=== PATIENT | male | born 1940 | race Caucasian/White ===

== ENCOUNTER 2017-01-16 21:30 | Inpatient (IN) | payer OTHER, MEDICARE ==
[~2017-01-16] VITALS: Ht 167.6 cm; Wt 66.5 kg
[2017-01-16] MEDS ORDERED: OMEP20TA93 PO (21:46)
[2017-01-16] MEDS ORDERED: GABA100C4 PO (21:46)
[2017-01-16] MEDS ORDERED: ENAL20TA PO (21:46)
[2017-01-16] MEDS ORDERED: ALPR.25 PO (21:46)
[2017-01-16 21:52] VITALS: BP 183/91; PULSE 65; RESP 18; TEMP 97.9; O2SAT 96
--- NOTE | 2017-01-16 21:52 | PD ---
HPI Chief Complaint: Dizziness Time Seen by Provider: 21:50 Travel History International Travel<30 days: No Contact w/Intl Traveler<30days: No Traveled to known affect area: No History of Present Illness HPI The patient is 76 years old and arrives by EMS. He has been falling at home about 3 times over the last 3 days or so. He has been following the occipital scalp area. No loss of consciousness. The patient denies chest pain shortness of breath nausea and vomiting. He does describe dizziness to EMS who provides some of the history. No fever. No history of coronary artery disease diabetes or hyperlipidemia. Patient has a history of anxiety and takes Xanax. PFSH Social History Tobacco Use: No Allergies-Medications (Allergen,Severity, Reaction): Coded Allergies: No Known Allergies (Unverified , 01/16/17) Reported Meds & Prescriptions Reported Meds & Active Scripts Active Reported Enalapril (Enalapril Maleate) 20 Mg Tab 20 Mg PO DAILY Xanax (Alprazolam) 0.25 Mg Tab 0.25 Mg PO Q8H PRN Omeprazole 20 Mg Tab 20 Mg PO DAILY Gabapentin 100 Mg Cap 100 Mg PO BID Review of Systems Except as stated in HPI: all other systems reviewed are Neg General / Constitutional: No: Fever Cardiovascular: Positive: Chest Pain or Discomfort Respiratory: Positive: Cough Physical Exam Narrative GENERAL: 76 yo M, AOx3, speaks full sentences SKIN: Focused skin assessment warm/dry. HEAD: Atraumatic. Normocephalic. No significant head trauma. EYES: Pupils equal and round. No scleral icterus. No injection or drainage. ENT: No nasal bleeding or discharge. Mucous membranes pink and moist. NECK: Trachea midline. No JVD. CARDIOVASCULAR: Regular rate and rhythm. No murmur appreciated. RESPIRATORY: No accessory muscle use. Clear to auscultation. Breath sounds equal bilaterally. GASTROINTESTINAL: Abdomen soft, non-tender, nondistended. Hepatic and splenic margins not palpable. MUSCULOSKELETAL: No obvious deformities. No clubbing. No cyanosis. No edema. Pelvis stable. No TTP about greater trochanter. Hips flexion normal. NEUROLOGICAL: Awake and alert. No obvious cranial nerve deficits. Motor grossly within normal limits. Normal speech. PSYCHIATRIC: Appropriate mood and affect; insight and judgment normal. Data Data Last Documented VS Vital Signs Date Time Temp Pulse Resp B/P (MAP) Pulse Ox O2 Delivery O2 Flow Rate FiO2 01/16/17 22:03 96 Room Air 01/16/17 21:52 97.9 65 18 VS reviewed Last [address] 01/16/17 2150 Signed Impressions: Service Date/Time: Monday, January 16, 2017 22:15 - CONCLUSION: Age-appropriate atrophy. No acute findings. Jose Maria Colunga MD Pelvis X-Ray 01/16/17 0000 Signed Impressions: Service Date/Time: Tuesday, January 17, 2017 10:08 - CONCLUSION: No fracture seen. Jose Maria Colunga MD Vital Signs Date Time Temp Pulse Resp B/P (MAP) Pulse Ox O2 Delivery O2 Flow Rate FiO2 01/16/17 22:03 96 Room Air 01/16/17 21:52 97.9 65 18 183/91 (121) 96 Room Air Orders Orders Basic Metabolic Panel (Bmp) (01/16/17 21:50) Complete Blood Count With Diff (01/16/17 21:50) Magnesium (Mg) (01/16/17 21:50) Ct Brain W/O Iv Contrast(Rout) (01/16/17 21:50) Ecg Monitoring (01/16/17 21:50) Iv Access Insert/Monitor (01/16/17 21:50) Oximetry (01/16/17 21:50) Sodium Chloride 0.9% Flush (Ns Flush) (01/16/17 22:00) Pelvis, Ap Only (Routine) (01/16/17 ) Drug Screen, Random Urine (01/16/17 22:26) Urinalysis - C+S If Indicated (01/16/17 22:26) Hepatic Functional Panel (01/16/17 21:45) Troponin I (01/16/17 21:45) Electrocardiogram (01/16/17 ) Chest, Single Ap (01/16/17 ) Admit Order (Ed Use Only) (01/16/17 ) Help Desk Agent / Telemetry MARNIE.Q8H (01/16/17 22:57) Vital Signs (Adult) Q4H (01/16/17 22:57) Diet Npo (01/17/17 Breakfast) Activity Bed Rest (01/16/17 22:57) Notify Dr: Other (01/16/17 22:57) Coag Profile (01/16/17 23:01) Labs Laboratory Tests Test 01/16/17 21:45 01/16/17 22:32 White Blood Count 7.9 TH/MM3 Red Blood Count 4.48 MIL/MM3 Hemoglobin 12.6 GM/DL Hematocrit 38.2 % Mean Corpuscular Volume 85.3 FL Mean Corpuscular Hemoglobin 28.2 PG Mean Corpuscular Hemoglobin Concent 33.0 % Red Cell Distribution Width 13.6 % Platelet Count 235 TH/MM3 Mean Platelet Volume 8.1 FL Neutrophils (%) (Auto) 70.8 % Lymphocytes (%) (Auto) 18.8 % Monocytes (%) (Auto) 8.6 % Eosinophils (%) (Auto) 1.1 % Basophils (%) (Auto) 0.7 % Neutrophils # (Auto) 5.5 TH/MM3 Lymphocytes # (Auto) 1.5 TH/MM3 Monocytes # (Auto) 0.7 TH/MM3 Eosinophils # (Auto) 0.1 TH/MM3 Basophils # (Auto) 0.1 TH/MM3 CBC Comment DIFF FINAL Differential Comment Blood Urea Nitrogen 12 MG/DL Creatinine 0.93 MG/DL Random Glucose 79 MG/DL Total Protein 7.2 GM/DL Albumin 3.1 GM/DL Calcium Level 8.6 MG/DL Magnesium Level 2.0 MG/DL Alkaline Phosphatase 80 U/L Aspartate Amino Transf (AST/SGOT) 36 U/L Alanine Aminotransferase (ALT/SGPT) 24 U/L Total Bilirubin 0.4 MG/DL Direct Bilirubin 0.1 MG/DL Sodium Level 139 MEQ/L Potassium Level 3.5 MEQ/L Chloride Level 105 MEQ/L Carbon Dioxide Level 26.5 MEQ/L Anion Gap 8 MEQ/L Estimat Glomerular Filtration Rate 79 ML/MIN Indirect Bilirubin 0.3 MG/DL Troponin I 1.35 NG/ML Urine Color YELLOW Urine Turbidity CLEAR Urine pH 6.5 Urine Specific [place] 1.017 Urine Protein TRACE mg/dL Urine Glucose (UA) NEG mg/dL Urine Ketones NEG mg/dL Urine Occult Blood NEG Urine Nitrite NEG Urine Bilirubin NEG Urine Leukocyte Esterase NEG Urine RBC 0-3 /hpf Urine WBC 0-2 /hpf Urine Squamous Epithelial Cells 0-5 /hpf Urine Bacteria NONE /hpf Microscopic Urinalysis Comment CULT NOT INDICATED Urine Barbiturates Screen NEG Urine Amphetamines Screen NEG Urine Benzodiazepines Screen POS Urine Cannabinoids Screen NEG MDM Medical Decision Making Medical Screen Exam Complete: Yes Emergency Medical Condition: Yes Medical Record Reviewed: Yes Differential Diagnosis Intracranial hemorrhage, metabolic disarray, NSTEMI, pelvic injury Narrative Course CBC & BMP Diagram 01/16/17 21:45 Total Protein 7.2, Albumin 3.1 L, Calcium Level 8.6, Magnesium Level 2.0, Alkaline Phosphatase 80, Aspartate Amino Transf (AST/SGOT) 36, Alanine Aminotransferase (ALT/SGPT) 24, Total Bilirubin 0.4, Direct Bilirubin 0.1 Tn 1.35 Tox screen + for benzos Last Impressions Head CT 01/16/17 2150 Signed Impressions: Service Date/Time: Monday, January 16, 2017 22:15 - CONCLUSION: Age-appropriate atrophy. No acute findings. Jose Maria Colunga MD Pelvis X-Ray 01/16/17 0000 Signed Impressions: Service Date/Time: Tuesday, January 17, 2017 10:08 - CONCLUSION: No fracture seen. Jose Maria Colunga MD Pt has NSTEMI EKG: Sinus rate 63 TWI inferior II, III and aVF no ST elevations d/w Dr Duncan pt will go to [facility], heparin started Heparin started d/w Dr Johnson for [facility] Critical Care Narrative Aggregate critical care time was 40 minutes. Time to perform other separately billable procedures was not included in the critical care time. My time did not include minutes spent treating any other patients simultaneously or on activities that did not directly contribute to the patient's treatment. The services I provided to this patient were to treat and/or prevent clinically significant deterioration that could result in: Cardiopulmonary arrest I provided critical care services requiring my management, as noted below: Chart data review, documentation time, medication orders and management, vital sign assessments/reviewing monitor data, ordering and reviewing lab tests, ordering and interpreting/reviewing x-rays and diagnostic studies, care of the patient and discussion of the patient with the admitting physicians. Diagnosis Primary Impression: NSTEMI (non-ST elevated myocardial infarction) Additional Impression: Falls Qualified Codes: W19.XXXA - Unspecified fall, initial encounter Admitting Information Admitting Physician Requests: Admit Guicho Batista MD Jan 16, 2017 21:52
[2017-01-16] MEDS ORDERED: SODIUM CHLORIDE 0.9% FLUSH 10 ML FLUSH IVF PRN (22:00)
[2017-01-16 22:03] VITALS: O2SAT 96
[2017-01-16 22:07] LABS: AUTOMATED NEUTROPHIL # 5.5 TH/MM3 (1.8-7.7); BASOPHIL # 0.1 TH/MM3 (0-0.2); BASOPHIL % 0.7 % (0.0-2.0); EOSINOPHIL # 0.1 TH/MM3 (0-0.4); EOSINOPHIL % 1.1 % (0.0-4.0); HEMATOCRIT 38.2 % (39.0-51.0); HEMO FLAGS DIFF FINAL; LYMPH % 18.8 % (9.0-44.0); LYMPHOCYTE # 1.5 TH/MM3 (1.0-4.8); MEAN CELL VOLUME 85.3 FL (80.0-100.0); MEAN CORPUSCULAR HEMOGLOBIN 28.2 PG (27.0-34.0); MONO % 8.6 % (0.0-8.0); NEUT % 70.8 % (16.0-70.0); PLATELET COUNT 235 TH/MM3 (150-450); RED BLOOD COUNT 4.48 MIL/MM3 (4.50-5.90); RED CELL DISTRIBUTION WIDTH 13.6 % (11.6-17.2); WHITE BLOOD COUNT 7.9 TH/MM3 (4.0-11.0)
[2017-01-16 22:13] LABS: POTASSIUM 3.5 MEQ/L (3.5-5.1)
[2017-01-16 22:17] LABS: BICARBONATE 26.5 MEQ/L (21.0-32.0)
--- NOTE | 2017-01-16 22:36 | RADRPT ---
EXAM DATE/TIME: 01/16/2017 22:15 CORRECTION Corrected on: January 21, 2017; fixed date and time [facility] COMPARISON: No previous studies available for comparison. INDICATIONS : Left hip pain post fall. MEDICAL HISTORY : None. SURGICAL HISTORY : None. ENCOUNTER: Initial ACUITY: 1 day PAIN SCORE: 4/10 LOCATION: Bilateral pelvis FINDINGS: A single frontal view of the pelvis demonstrates no evidence of fracture. The bony pelvic ring is in tact. Bony mineralization is normal. The soft tissues are intact. Vascular calcification in the pe lvis and proximal thighs. CONCLUSION: No fracture seen. Jose Maria Colunga MD on January 16, 2017 at 22:34 Board Certified Radiologist. Board Certified Radiologist. This report was verified electronically.
[2017-01-16 22:39] LABS: BLOOD, URINE NEG (NEG); GLUCOSE,URINE NEG (NEG); KETONE, URINE NEG (NEG); NITRITE,URINE NEG (NEG); PH, URINE 6.5 (5.0-8.5)
[2017-01-16 22:40] LABS: URINE COLOR YELLOW (YELLW/STRAW)
[2017-01-16 22:42] LABS: INDIRECT BILIRUBIN 0.3 MG/DL (0.0-0.8); TOTAL BILIRUBIN ADULT 0.4 MG/DL (0.2-1.0)
[2017-01-16 22:42] LABS: COMMENT (UR) CULT NOT INDICATED; CULTURE IF INDICATED CULT NOT INDICATED; RBC, URINE 0-3 /hpf (0-3); SQUAMOUS EPITHELIAL CELL URINE 0-5 /hpf (0-5); WBC, URINE 0-2 /hpf (0-5)
--- NOTE | 2017-01-16 22:42 | RADRPT ---
EXAM DATE/TIME: 01/16/2017 22:15 [facility] COMPARISON: No previous studies available for comparison. INDICATIONS : Frequent falls. Dizziness. Weakness RADIATION DOSE: 60.38 CTDIvol (mGy) MEDICAL HISTORY : Hypertension. SURGICAL HISTORY : None. ENCOUNTER: Initial ACUITY: 1 day PAIN SCALE: 0/10 LOCATION: cranial TECHNIQUE: Multiple contiguous axial images were obtained of the head. Using automated exposure control and adj ustment of the mA and/or kV according to patient size, radiation dose was kept as low as reasonably a chievable to obtain optimal diagnostic quality images. DICOM format image data is available electro nically for review and comparison. FINDINGS: CEREBRUM: The ventricles are normal for age. No evidence of midline shift, mass lesion, hemorrhage or acute in farction. No extra-axial fluid collections are seen. POSTERIOR FOSSA: The cerebellum and brainstem are intact. The 4th ventricle is midline. The cerebellopontine angle i s unremarkable. EXTRACRANIAL: The visualized portion of the orbits is intact. SKULL: The calvaria is intact. No evidence of skull fracture. CONCLUSION: Age-appropriate atrophy. No acute findings. Jose Maria Colunga MD on January 16, 2017 at 22:40 Board Certified Radiologist. This report was verified electronically.
[2017-01-16 23:08] VITALS: BP 154/84; PULSE 65; RESP 16; O2SAT 97
[2017-01-16] MEDS: SODIUM CHLOR 0.9% 1000 ML INJ 1,000 ML IV SCH (23:09)
[2017-01-16] MEDS ORDERED: SENNOSIDES 8.6 MG TAB PO PRN (23:15)
[2017-01-16] MEDS ORDERED: LACTULOSE SYRUP 20 GM/30 ML CUP PO PRN (23:15)
[2017-01-16] MEDS ORDERED: HEPARIN-D5W 25,000 U/250 ML 250 ML IV PRN (23:15)
[2017-01-16] MEDS ORDERED: BISACODYL 10 MG SUPP RECTAL PRN (23:15)
[2017-01-16] MEDS ORDERED: MORPHINE SULFATE 4 MG/ML INJ IV PUSH PRN (23:15)
[2017-01-16] MEDS ORDERED: ACETAMINOPHEN/HYDROcodone 325 MG/5 MG TAB PO PRN (23:15)
[2017-01-16] MEDS ORDERED: MAGNESIUM HYDROXIDE SUSP 30 ML CUP PO PRN (23:15)
[2017-01-16] MEDS ORDERED: SODIUM CHLORIDE 0.9% FLUSH 10 ML FLUSH IV FLUSH PRN (23:15)
[2017-01-16] MEDS ORDERED: ACETAMINOPHEN 325 MG TAB PO PRN (23:15)
[2017-01-16 23:25] LABS: APTT (PATIENT) 28.9 SEC (24.3-30.1); PROTHROMBIN TIME - PATIENT 10.9 SEC (9.8-11.6)
--- NOTE | 2017-01-16 23:26 | RADRPT ---
EXAM DATE/TIME: 01/16/2017 22:15 CORRECTION Corrected on: January 22, 2017; fix date and time [facility] COMPARISON: No previous studies available for comparison. INDICATIONS : Chest pain. MEDICAL HISTORY : Hypertension. SURGICAL HISTORY : None. ENCOUNTER: Initial ACUITY: 1 day PAIN SCORE: 3/10 LOCATION: Bilateral chest FINDINGS: A single view of the chest demonstrates the lungs to be symmetrically aerated without evidence of mas s, infiltrate or effusion. The cardiomediastinal contours are unremarkable. Osseous structures are intact. There are multiple overlying electrocardiogram leads. Surgical clips are present in the right upper quadrant characteristic of care cholecystectomy. CONCLUSION: No acute disease. Jesús Davies MD on January 16, 2017 at 23:24 Board Certified Radiologist. Board Certified Radiologist. This report was verified electronically.
[2017-01-16 23:40] VITALS: O2SAT 100
[2017-01-16 23:59] LABS: CKMB 4.7 NG/ML (0.5-3.6)
[2017-01-17] VITALS (25 sets, daily range): BP systolic 151–183; BP diastolic 84–117; PULSE 60–85; RESP 16–20; TEMP 97.5–98.4; O2SAT 95–100
[2017-01-17] MEDS: HEPARIN-D5W 25,000 U/250 ML 250 ML IV PRN (01:02)
[2017-01-17] MEDS ORDERED: hydrALAZINE HCL 20 MG/ML VIAL IV PUSH ONE (03:00)
--- NOTE | 2017-01-17 03:16 | HHI.HP ---
HPI Service [facility] Hospitalists Primary Care Physician No Primary Care Physician Admission Diagnosis Tn 1.5; Falls; AMS Diagnoses: (1) NSTEMI (non-ST elevated myocardial infarction) Diagnosis: Principal (2) Falls Chief Complaint: Falling Travel History International Travel<30 Days: No Contact w/Intl Traveler <30 Da: No Traveled to Known Affected Are: No History of Present Illness Mr. Dash is 76 yo, with history of anxiety, GERD, tremors, hypertension, and diabetes. Pt stated having difficulty walking for "over the past two weeks." He stated he has been "staggering" and "I can't walk a straight line." He noted over the past three days having fallen 4 times with at least one head strike. None of these falls resulted in loss of consciousness, blurred vision, or headache. He did report a fall that was a left sided head strike did result in him developing "some nausea." He stated he became concerned about his falling and called 911 and was taken to [facility] [place]. Testing indicated the presence of elevated troponin and he was subsequently transferred to [facility] early on the morning of 01/17/17 for further evaluation and management. Mr. Dash denied chest pain, shortness of breath, nausea, vomiting, sweating , or other discomfort. Per RN, she stated pt's niece had reported pt was "not himself". Pt noted he has been taking Ativan and RN stated it had recently "been stopped." His tox screen was positive for benzodiazepines. Review of Systems Constitutional: DENIES: Diaphoretic episodes, Fatigue Endocrine: DENIES: Polydipsia, Polyphagia Eyes: DENIES: Blurred vision, Vision loss, Double Vision Ears, nose, mouth, throat: COMPLAINS OF: Hearing loss (has bilateral hearing aids.), DENIES: Tinnitus, Throat pain, Toothache Respiratory: DENIES: Apneas, Wheezing, Hemoptysis, Shortness of breath Cardiovascular: DENIES: Chest pain, Palpitations, Syncope, Lower Extremity Edema Gastrointestinal: COMPLAINS OF: Nausea (When he struck his head "a few days ago."), DENIES: Abdominal pain, Black stools, Bloody stools, Constipation, Diarrhea, Vomiting Genitourinary: DENIES: Urgency, Hematuria Musculoskeletal: DENIES: Muscle aches, Back pain Integumentary: DENIES: Abnormal pigmentation, Rash Hematologic/lymphatic: DENIES: Bruising Neurologic: COMPLAINS OF: Abnormal gait, Tremor (Reported to be of 10-15 year duration. Worsens when he "goes to do something." Noted he has difficulty writing. 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 He said he was not bothered/concerned about this as "it's like I go to the grocery and forget some things." Pt said he can experience difficulty "recalling what happened last week." Past Family Social History Past Medical History Anxiety Tremor Hypertension GERD Diabetes-pt stated he takes 12 unites of Novolog in the morning, 10 units at lunch and 20 units of Levemir at night. Past Surgical History Cholecystectomy Appendectomy Reported Medications Reported Meds & Active Scripts Active Reported Enalapril (Enalapril Maleate) 20 Mg Tab 20 Mg PO DAILY Xanax (Alprazolam) 0.25 Mg Tab 0.25 Mg PO Q8H PRN Omeprazole 20 Mg Tab 20 Mg PO DAILY Gabapentin 100 Mg Cap 100 Mg PO BID Allergies: Coded Allergies: No Known Allergies (Unverified , 01/16/17) Active Ordered Medications Current Medications Medications (Trade) Dose Ordered Sig/[place] Route Start Time Stop Time Status Last Admin (NS Flush) 2 ml UNSCH PRN IVF 01/16/17 22:00 Sodium Chloride 1,000 ml @ 100 mls/hr Q10H IV 01/16/17 23:09 01/16/17 23:09 (NS Flush) 2 ml UNSCH PRN IV FLUSH 01/16/17 23:15 (NS Flush) 2 ml BID IV FLUSH 01/17/17 09:00 (Zofran Inj) 4 mg Q6H PRN IVP 01/16/17 23:15 (Tylenol) 650 mg Q6H PRN PO 01/16/17 23:15 ([place] 5-325 Mg) 1 tab Q4H PRN PO 01/16/17 23:15 (Morphine Inj) 1 mg Q3H PRN IV PUSH 01/16/17 23:15 (Haylie-Colace) 1 tab BID PO 01/17/17 09:00 (Milk Of Magnesia Liq) 30 ml Q12H PRN PO 01/16/17 23:15 (Dulcolax Supp) 10 mg DAILY PRN RECTAL 01/16/17 23:15 (Lactulose Liq) 30 ml DAILY PRN PO 01/16/17 23:15 (Ecotrin Ec) 81 mg DAILY PO 01/17/17 09:00 (Pravachol) 40 mg DAILY PO 01/17/17 09:00 (Lopressor) 25 mg Q12HR PO 01/17/17 09:00 Heparin Sodium/ Dextrose 250 ml @ 8 mls/hr TITRATE PRN IV 01/16/17 23:45 01/17/17 01:02 Family History Mother-diabetes (type II) Father-Diabetes, smoker, heart disease, from an [place] Brother-reported to have "the same walking problems I have. He can't walk a straight line either." Social History Pt denied lifelong tobacco use history. Alcohol use was denied. Illicit/recreational drug use was denied. Pt worked in [employer] much of his life. Life long bachelor. Reported having a brother, nephew and niece "near by" and a sister who lives in [place]. Pt stated he had learning "problems" and it was hard form her to "read, and do math." He stated he completed the 6th grade. Physical Exam Vital Signs Vital Signs Date Time Temp Pulse Resp B/P (MAP) Pulse Ox O2 Delivery O2 Flow Rate FiO2 01/17/17 02:00 97.5 70 16 173/88 (116) 100 01/17/17 01:14 63 18 161/90 (113) 100 Nasal Cannula 01/16/17 23:40 100 Nasal Cannula 2.00 01/16/17 23:08 65 16 154/84 (107) 97 Room Air 01/16/17 22:03 96 Room Air 01/16/17 21:52 97.9 65 18 183/91 (121) 96 Room Air Physical Exam GENERAL: This is a well-nourished, well-developed patient, in no apparent distress. SKIN: No rashes, ecchymoses or lesions. Cool and dry. HEAD: Atraumatic. Normocephalic. EYES: Pupils equal round and reactive. Extraocular motions intact. No scleral icterus. No injection or drainage. ENT: Nose without bleeding or purulent . Airway patent. Bilateral hearing aids present. NECK: Trachea midline. No lymphadenopathy. Supple and nontender. CARDIOVASCULAR: Regular rate and rhythm without murmurs, gallops, or rubs. RESPIRATORY: Clear to auscultation. Breath sounds equal bilaterally. No wheezes , rales, or rhonchi. GASTROINTESTINAL: Abdomen soft, non-tender, nondistended. No hepato- splenomegaly or guarding. MUSCULOSKELETAL: Extremities without clubbing, cyanosis, or edema. NEUROLOGICAL: Awake and alert. Cranial nerves II through XII intact. Motor and sensory grossly within normal limits. Five out of 5 muscle strength in all muscle groups. Speech was clear and fluent. Pt stated he was unaware of cardiac issues and stated he was being hospitalized for his falling. Laboratory Laboratory Tests Test 01/16/17 21:45 01/16/17 22:32 White Blood Count 7.9 Red Blood Count 4.48 Hemoglobin 12.6 Hematocrit 38.2 Mean Corpuscular Volume 85.3 Mean Corpuscular Hemoglobin 28.2 Mean Corpuscular Hemoglobin Concent 33.0 Red Cell Distribution Width 13.6 Platelet Count 235 Mean Platelet Volume 8.1 Neutrophils (%) (Auto) 70.8 Lymphocytes (%) (Auto) 18.8 Monocytes (%) (Auto) 8.6 Eosinophils (%) (Auto) 1.1 Basophils (%) (Auto) 0.7 Neutrophils # (Auto) 5.5 Lymphocytes # (Auto) 1.5 Monocytes # (Auto) 0.7 Eosinophils # (Auto) 0.1 Basophils # (Auto) 0.1 CBC Comment DIFF FINAL Differential Comment Prothrombin Time 10.9 Prothromb Time International Ratio 1.0 Activated Partial Thromboplast Time 28.9 Blood Urea Nitrogen 12 Creatinine 0.93 Random Glucose 79 Total Protein 7.2 Albumin 3.1 Calcium Level 8.6 Magnesium Level 2.0 Alkaline Phosphatase 80 Aspartate Amino Transf (AST/SGOT) 36 Alanine Aminotransferase (ALT/SGPT) 24 Total Bilirubin 0.4 Direct Bilirubin 0.1 Sodium Level 139 Potassium Level 3.5 Chloride Level 105 Carbon Dioxide Level 26.5 Anion Gap 8 Estimat Glomerular Filtration Rate 79 Indirect Bilirubin 0.3 Total Creatine Kinase 530 Creatine Kinase MB 4.7 Creatine Kinase MB % 0.9 Troponin I 1.35 Urine Color YELLOW Urine Turbidity CLEAR Urine pH 6.5 Urine Specific [place] 1.017 Urine Protein TRACE Urine Glucose (UA) NEG Urine Ketones NEG Urine Occult Blood NEG Urine Nitrite NEG Urine Bilirubin NEG Urine Leukocyte Esterase NEG Urine RBC 0-3 Urine WBC 0-2 Urine Squamous Epithelial Cells 0-5 Urine Bacteria NONE Microscopic Urinalysis Comment CULT NOT INDICATED Urine Opiates Screen NEG Urine Barbiturates Screen NEG Urine Amphetamines Screen NEG Urine Benzodiazepines Screen POS Urine Cocaine Screen NEG Urine Cannabinoids Screen NEG Result Diagram: 01/16/17214401/16/172144 Imaging Last Impressions Head CT 01/16/172149 Signed Impressions: Service Date/Time: Monday, January 16, 2017 22:15 - CONCLUSION: Age-appropriate atrophy. No acute findings. Jose Maria Colunga MD Pelvis X-Ray 01/16/17 0000 Signed Impressions: Service Date/Time: Tuesday, January 17, 2017 10:08 - CONCLUSION: No fracture seen. Jose Maria Colunga MD Chest X-Ray 01/16/17 0000 Signed Impressions: Service Date/Time: Tuesday, January 17, 2017 11:15 - CONCLUSION: No acute disease. Jesús Davies MD [place] VTE Risk Assessment Caprini VTE Risk Assessment: Mod/High Risk (score >= 2) Caprini Risk Assessment Model Point Value = 1 Point Value = 2 Point Value = 3 Point Value = 5 Age 41-60 Minor surgery BMI > 25 kg/m2 Swollen legs Varicose veins or History of unexplained or recurrent spontaneous Oral contraceptives or hormone replacement Sepsis (< 1 month) Serious lung disease, including pneumonia (< 1 month) Abnormal pulmonary function Acute myocardial infarction Congestive heart failure (< 1 month) History of inflammatory bowel disease Medical patient at bed rest Age 61-74 Arthroscopic surgery Major open surgery (> 45 min) Laparoscopic surgery (> 45 min) Malignancy Confined to bed (> 72 hours) Immobilizing plaster cast Central venous access Age >= 75 History of VTE Family history of VTE Factor V Leiden Prothrombin [id number] Lupus anticoagulant Anticardiolipin antibodies Elevated serum homocysteine Heparin-induced thrombocytopenia Other congenital or acquired thrombophilia Stroke (< 1 month) Elective arthroplasty Hip, pelvis, or leg fracture Acute spinal cord injury (< 1 month) Prophylaxis Regimen Total Risk Factor Score Risk Level Prophylaxis Regimen 0-1 Low Early ambulation 2 Moderate Order ONE of the following: *Sequential Compression Device (SCD) *Heparin 5000 units SQ BID 3-4 Higher Order ONE of the following medications: *Heparin 5000 units SQ TID *Enoxaparin/Lovenox 40 mg SQ daily (WT < 150 kg, CrCl > 30 mL/min) *Enoxaparin/Lovenox 30 mg SQ daily (WT < 150 kg, CrCl > 10-29 mL/min) *Enoxaparin/Lovenox 30 mg SQ BID (WT < 150 kg, CrCl > 30 mL/min) AND/OR *Sequential Compression Device (SCD) 5 or more Highest Order ONE of the following medications: *Heparin 5000 units SQ TID (Preferred with Epidurals) *Enoxaparin/Lovenox 40 mg SQ daily (WT < 150 kg, CrCl > 30 mL/min) *Enoxaparin/Lovenox 30 mg SQ daily (WT < 150 kg, CrCl > 10-29 mL/min) *Enoxaparin/Lovenox 30 mg SQ BID (WT < 150 kg, CrCl > 30 mL/min) AND *Sequential Compression Device (SCD) Assessment and Plan Assessment and Plan Mr. Dash is 76 yo, with history of anxiety, GERD, tremors, hypertension, and diabetes. Pt stated having difficulty walking for "over the past two weeks." He stated he has been "staggering" and "I can't walk a straight line." He noted over the past three days having fallen 4 times with at least one head strike. None of these falls resulted in loss of consciousness, blurred vision, or headache. He did report a fall that was a left sided head strike did result in him developing "some nausea." He stated he became concerned about his falling and called 911 and was taken to [facility]. Testing indicated the presence of elevated troponin and he was subsequently transferred to [facility] early on the morning of 01/17/17 for further evaluation and management. NSTEMI Hypertension -Admit to cardiac unit. -Cardiology consulted, input appreciated. -Heparin drip initiated. -Serial Troponin ordered -Continue home regimen of metoprolol 25 mg po q 12 hrs -Elevations to be treated PRN Falls Tremors -Pt with [id number] history of staggering and falls, consult neurology -Consult PT to evaluate and treat. Diabetes -Finger sticks q ac and hs -Ha1c to be ordered -Low dose Novolog sliding scale insulin Random blood sugar noted to be 79 while in [place] ED. Anxiety -Anxiolytic held at this time. DVT prophylaxis -Heparin Code Status Full code Discussed Condition With Pt, RN, and Dr. Johnson Physician Certification 2 Midnight Certification Type: Admission for Inpatient Services Order for Inpatient Services The services are ordered in accordance with Medicare regulations or non- Medicare payer requirements, as applicable. In the case of services not specified as inpatient-only, they are appropriately provided as inpatient services in accordance with the 2-midnight benchmark. Estimated LOS (days): 2 Two days is the estimated time the patient will need to remain in the hospital, assuming treatment plan goals are met and no additional complications. Post-Hospital Plan: Not yet determined Problem Qualifiers (1) Falls: Qualified Codes: W19.XXXA - Unspecified fall, initial encounter Ben Arguello Jr. Jan 17, 2017 03:16
[2017-01-17] MEDS ORDERED: GLUCAGON 1 MG/ML VIAL OTHER PRN (03:45)
[2017-01-17] MEDS ORDERED: DEXTROSE 50% IN WATER 50 ML VIAL(D50) IV PUSH PRN (03:45)
[2017-01-17 05:41] LABS: APTT (PATIENT) 36.7 SEC (24.3-30.1)
[2017-01-17 06:29] LABS: CKMB 4.2 NG/ML (0.5-3.6)
[2017-01-17 07:45] LABS: APTT (PATIENT) 45.1 SEC (24.3-30.1)
[2017-01-17] MEDS: INSULIN ASPART SUPPLEMENTAL SCALE SQ SCH ×4 (08:00→21:00)
[2017-01-17] MEDS: METOPROLOL TARTRATE 25 MG TAB PO SCH ×2 (08:01→20:39)
[2017-01-17] MEDS: DOCUSATE SODIUM 50 MG/SENNA 8.6 MG TAB PO SCH ×2 (08:01→20:39)
[2017-01-17] MEDS: SODIUM CHLORIDE 0.9% FLUSH 10 ML FLUSH IV FLUSH SCH ×2 (08:01→20:38)
[2017-01-17] MEDS: ASPIRIN EC 81 MG TABEC PO SCH (08:01)
[2017-01-17] MEDS: PRAVASTATIN SOD 40 MG TAB PO SCH (08:01)
[2017-01-17] MEDS ORDERED: PNEUMOCOCCAL POLYVALENT INJ 25 MCG/0.5 ML SYR IM ONE (09:00)
[2017-01-17] MEDS: SODIUM CHLOR 0.9% 1000 ML INJ 1,000 ML IV SCH ×2 (09:09→19:09)
[2017-01-17 10:48] LABS: ALT (GPT) 23 U/L (12-78); ANION GAP 8 MEQ/L (5-15); AST (GOT) 33 U/L (15-37); BICARBONATE 25.6 MEQ/L (21.0-32.0); BLOOD UREA NITROGEN 11 MG/DL (7-18); CHLORIDE 104 MEQ/L (98-107); GLOMERULAR FILTRATION RATE 85 ML/MIN (>89); POTASSIUM 3.7 MEQ/L (3.5-5.1); SODIUM (NA) 138 MEQ/L (136-145)
[2017-01-17 10:52] LABS: ALKALINE PHOSPHATASE 90 U/L (45-117); CREATINE KINASE 416 U/L (39-308); TOTAL BILIRUBIN ADULT 0.5 MG/DL (0.2-1.0)
[2017-01-17 10:57] LABS: AUTOMATED NEUTROPHIL # 5.8 TH/MM3 (1.8-7.7); BASOPHIL % 0.1 % (0.0-2.0); EOSINOPHIL % 0.4 % (0.0-4.0); HEMATOCRIT 40.9 % (39.0-51.0); HEMO FLAGS DIFF FINAL; LYMPH % 14.1 % (9.0-44.0); MEAN CELL VOLUME 86.2 FL (80.0-100.0); MEAN CORPUSCULAR HEMOGLOBIN 28.7 PG (27.0-34.0); MEAN CORPUSCULAR HGB CONC 33.3 % (32.0-36.0); MONO % 6.5 % (0.0-8.0); NEUT % 78.9 % (16.0-70.0); PLATELET COUNT 231 TH/MM3 (150-450); RED BLOOD COUNT 4.74 MIL/MM3 (4.50-5.90); RED CELL DISTRIBUTION WIDTH 14.2 % (11.6-17.2); WHITE BLOOD COUNT 7.4 TH/MM3 (4.0-11.0)
[2017-01-17 11:10] LABS: CKMB 4.1 NG/ML (0.5-3.6)
[2017-01-17 12:12] LABS: HEMOGLOBIN A1a 1.1 %; HEMOGLOBIN A1b 1.9 %; HEMOGLOBIN Ao 81.5 %; HEMOGLOBIN LA1C 2.7 %; HEMOGLOBIN P3 4.4 %
[2017-01-17 12:40] LABS: APTT (PATIENT) 43.1 SEC (24.3-30.1)
--- NOTE | 2017-01-17 13:53 | MB ---
cc: BASSAM RIGGS M.D. DATE OF CONSULTATION: 01/17/2017. REASON FOR CONSULTATION: Ataxia and tremor. HISTORY OF PRESENT ILLNESS: Mr. Dash is a 76-year-old male who states that for about a year now he has had trouble with walking difficulty where he tends to waver going from side to side while walking. He has had frequent falls because of this. He has to use a walker. He has had a tremor as well in both upper extremities for about five years gradually progressive. PAST MEDICAL HISTORY: 1. History of anxiety. 2. Tremor. 3. Hypertension. 4. Gastroesophageal reflux disease (GERD). 5. Diabetes. 6. Cholecystectomy. 7. Appendectomy. MEDICINES AT HOME: 1. Enalapril. 2. Xanax. 3. Omeprazole. 4. Gabapentin. ALLERGIES: NONE KNOWN. NEUROLOGICAL EXAMINATION: VITAL SIGNS: Blood pressure is 161/91 sitting. Pulse is 61. Respiratory rate is 18. Temperature 98.2 degrees. HIGHER CORTICAL FUNCTIONS: He is alert and oriented x3. His speech is somewhat hypophonic but fluent. CRANIAL NERVES: Cranial nerves are intact. MOTOR: On motor exam, he has 5/5 strength of all groups in both upper and lower extremities. He is mildly bradykinetic. He has tremors in both hands, which are mainly sustention tremors. On cerebellar testing, he does have dysmetria in both upper extremities. His gait is very wide-based and ataxic. IMAGING STUDIES: CT scan of the brain shows atrophy. No acute change. No sign of hydrocephalus. Ventricular size is within normal limits. LABS: The white count is 7400, hematocrit 40.9%, hemoglobin 13.6, platelet count 231,000. PT 10.9. INR 1. APTT 28.9. Sodium is 139, potassium 3.5, chloride 105, carbon dioxide 26.5, BUN is 12, creatinine is 0.93, GFR is 79. AST is 36, ALT 24. IMPRESSION: Ataxia. He has mainly cerebellar findings on his examination. This may be a multiple system atrophy such as olivopontocerebellar atrophy. Parkinson's is a possibility but somewhat less likely. His gait is more cerebellar. RECOMMENDATIONS: 1. I would like to get an MRI of the brain to rule out cerebellar atrophy. 2. Also check a vitamin B12 level. MD LORRI Garcia/TISHA /12:01 PM /1:44 PM
--- NOTE | 2017-01-17 14:44 | EKG ---
Date Performed: 01/16/2017 Time Performed: 22:56:48 PTAGE: 76 years EKG: Sinus rhythm POSSIBLE LEFT ATRIAL ENLARGEMENT BORDERLINE LEFT AXIS DEVIATION POSSIBLE LEFT VENTRICULAR HYPERTROPH Y NONSPECIFIC ST & T-WAVE ABNORMALITY ABNORMAL ECG NO PREVIOUS TRACING DOCTOR: Derrick Batista Interpretating Date/Time 01/17/2017 14:42:49
[2017-01-17] MEDS ORDERED: GADODIAMIDE PF 287 MG/ML 20 ML VIAL (for RAD MRI) IVCONTRAST ONE (14:55)
--- NOTE | 2017-01-17 15:11 | MB ---
cc: DERRICK GARCES DO DATE OF CONSULTATION: 01/17/2017 REASON FOR CONSULTATION: NSTEMI. HISTORY OF PRESENT ILLNESS Tanner Dash is a pleasant 76-year-old male who presented to [facility] on January 16, 2017 due to dizziness, staggering and having trouble walking straight. He states that over the past few weeks he has had trouble being able to walk straight as well as having to stagger. He was noted to fall a few times over the past four days with at least one strike to his head. None of the falls resulted in loss of consciousness, blurred vision or headache. Because of the difficulty with walking and falls, he called 9-1-1 and was taken to the [facility]. Because of the elevated troponin, he was transferred to [facility]. On seeing him, he is currently hemodynamically stable without chest pain, shortness of breath, nausea or vomiting. PAST MEDICAL HISTORY: 1. Anxiety. 2. Baseline trauma. 3. Hypertension. 4. Gastroesophageal reflux disease (GERD). 5. Diabetes mellitus. PAST SURGICAL HISTORY: 1. Cholecystectomy. 2. Appendectomy. ALLERGIES: NO KNOWN DRUG ALLERGIES. MEDICATIONS: 1. Enalapril 20 milligrams daily. 2. Given 1000 milligrams twice a day. 3. Xanax 0.25 milligrams every 8 hours as needed for anxiety. 4. Omeprazole 20 milligrams daily. FAMILY HISTORY: Denies premature coronary artery disease or sudden cardiac within the family. SOCIAL HISTORY: The patient denies tobacco or alcohol abuse. He does have a few family nearby including a brother, a nephew and a niece. REVIEW OF SYSTEMS Fourteen systems were reviewed including osteopathic with pertinent positives and negatives as above; otherwise negative. PHYSICAL EXAMINATION: VITAL SIGNS: Temperature 98.2, heart rate 64, blood pressure 161/91, respirations 18, pulse ox 98% on 2 liters. GENERAL: In general the patient appears well and in no acute distress, alert awake and oriented x3. HEAD, EYES, EARS, NOSE, THROAT: Extraocular muscles intact. Mucous membranes moist. NECK: Supple. No JVD at 45 degrees. No carotid bruits heard bilaterally. Carotid upstroke is brisk in nature. HEART: Regular rate and rhythm. Positive first and second heart sounds with no noted murmurs, gallops or rubs. LUNGS: Clear to auscultation bilaterally. No wheezes, rales or rhonchi. ABDOMEN: The abdomen is soft, nontender and nondistended. No organomegaly noted. EXTREMITIES: Baseline tremor in the upper extremities. No cyanosis, clubbing or edema is noted in the distal lower extremities. NEUROLOGIC: Cranial nerves II through XII are grossly intact. Baseline tremor noted, otherwise, no focal deficits. SKIN: Warm, dry and intact. LABORATORY WORK: Hemoglobin 13.6, hematocrit 40.9, platelets 231,000. Potassium 3.7, BUN 11, creatinine 0.87. Troponin 1.32. EKGS: Electrocardiogram (January 16, 2017 at 2256): Sinus rhythm, possible left atrial enlargement, possible LVH with nonspecific S-T-T wave changes. IMPRESSION: 1. NSTEMI. 2. Multiple falls recently. 3. Longstanding dizziness. 4. Hypertension. 5. Baseline tremor. 6. Diabetes mellitus. 7. Anxiety. RECOMMENDATIONS: 1. Mr. Dash presented to [facility] with the complaint of falls. He was found to have an elevated troponin, and I am unsure at this time whether this is type 1 or type 2 in nature. 2. He has been started on a heparin drip and unless stopped by neurology, would continue this. 3. I spoke to him about consideration of medical management versus ischemic evaluation and he states that he is willing to undergo a cardiac catheterization. The risks, benefits, and alternatives were explained to him and he consented as such. 4. He states that his dizziness has bothered him for around five years, even though he has had a little more difficulty with walking recently. We will plan on having neurology see him for further workup for this. 5. Will check a 2-D echocardiogram to look at his overall left ventricular function, cardiac structure and possible valvulopathies. 6. Further recommendations will be made based on the hospital course. Thank you for allowing me to see Tanner Dash. If there are any questions, please do not hesitate to call. Derrick Garces DO VGP/TISHA /12:50 PM /2:57 PM
--- NOTE | 2017-01-17 15:17 | RADRPT ---
EXAM DATE/TIME: 01/17/2017 14:42 [place] COMPARISON: No previous studies available for comparison. INDICATIONS : Ataxia. Frequent falling. CONTRAST: 14 cc Omniscan (gadodiamide) IV MEDICAL HISTORY : Pancreatitis. Hypertension. Diabetes mellitus type 2. SURGICAL HISTORY : Cholecystectomy. Appendectomy. Pancreas. ENCOUNTER: Initial ACUITY: 2 day PAIN SCORE: 0/10 LOCATION: cranial TECHNIQUE: Multiplanar, multisequence MRI of the brain was performed both prior to and following the administrat ion of paramagnetic contrast. FINDINGS: CEREBRUM: The ventricles are normal for age. No evidence of midline shift, mass lesion, hemorrhage or acute in farction. No extraaxial fluid collections are seen. The pituitary gland and suprasellar cistern are normal in configuration. WHITE MATTER: No significant signal abnormalities are seen in the white matter. POSTERIOR FOSSA: The cerebellum and brainstem are intact. The 4th ventricle is midline. The cerebellopontine angle is unremarkable. The cerebellar tonsils are normal in position. DIFFUSION IMAGING: No focal areas of restricted diffusion are seen. No evidence of acute infarction. EXTRACRANIAL: The visualized portions of the orbits and paranasal sinuses are unremarkable. POST-CONTRAST: No abnormal areas of parenchymal or dural enhancement. No evidence of blood-brain barrier breakdown. CONCLUSION: Age-appropriate atrophy. Otherwise negative MRI brain with and without contrast. Jose Maria Colunga MD on January 17, 2017 at 15:13 Board Certified Radiologist. This report was verified electronically.
[2017-01-17] MEDS: ONDANSETRON HCL 4 MG/2 ML VIAL IVP PRN (20:29)
[2017-01-18] VITALS (30 sets, daily range): BP systolic 129–189; BP diastolic 54–91; PULSE 50–78; RESP 16–20; TEMP 97.3–98.4; O2SAT 94–100
[2017-01-18 04:44] LABS: APTT (PATIENT) 53.3 SEC (24.3-30.1)
[2017-01-18] MEDS: SODIUM CHLOR 0.9% 1000 ML INJ 1,000 ML IV SCH ×2 (05:09→15:48)
[2017-01-18 05:18] LABS: CKMB 3.3 NG/ML (0.5-3.6)
[2017-01-18] MEDS: HEPARIN-D5W 25,000 U/250 ML 250 ML IV PRN (06:19)
[2017-01-18] MEDS: ONDANSETRON HCL 4 MG/2 ML VIAL IVP PRN ×2 (06:53→13:54)
[2017-01-18] MEDS: INSULIN ASPART SUPPLEMENTAL SCALE SQ SCH ×4 (08:00→21:00)
[2017-01-18] MEDS: SODIUM CHLORIDE 0.9% FLUSH 10 ML FLUSH IV FLUSH SCH ×2 (08:49→21:39)
[2017-01-18] MEDS: METOPROLOL TARTRATE 25 MG TAB PO SCH ×2 (08:50→21:38)
[2017-01-18] MEDS: ASPIRIN EC 81 MG TABEC PO SCH (08:50)
[2017-01-18] MEDS: PRAVASTATIN SOD 40 MG TAB PO SCH (08:50)
[2017-01-18] MEDS: DOCUSATE SODIUM 50 MG/SENNA 8.6 MG TAB PO SCH ×2 (08:50→21:38)
--- NOTE | 2017-01-18 10:36 | HHI.PR ---
Subjective Remarks Nursing reports that the patient had multiple episodes of vomiting last night. Unsure if these were tied to meals in particular. Nursing denies any hematemesis. Patient says he now feels much better this morning with just a little bit of nausea. Denies any chest pain or abdominal pain. He is able to tell me that he is at [place] and he was admitted because he kept falling a lot. Objective Vital Signs Date Time Temp Pulse Resp B/P (MAP) Pulse Ox O2 Delivery O2 Flow Rate FiO2 01/18/17 10:23 72 01/18/17 09:28 169/84 (112) 01/18/17 09:00 58 01/18/17 08:48 170/91 (117) 01/18/17 08:00 54 01/18/17 07:54 97.3 57 18 189/88 (121) 99 01/18/17 07:35 57 01/18/17 06:00 78 01/18/17 05:00 62 01/18/17 04:00 50 01/18/17 04:00 97.4 58 16 150/83 (105) 100 01/18/17 03:00 62 01/18/17 02:00 68 01/18/17 01:40 154/54 (87) 01/18/17 01:00 64 01/18/17 00:00 58 01/18/17 00:00 155/84 (107) 01/17/17 23:00 63 01/17/17 23:00 97.5 63 177/92 (120) 100 01/17/17 22:00 164/92 (116) 01/17/17 22:00 60 01/17/17 21:00 70 01/17/17 20:00 97.5 61 20 183/117 (139) 95 01/17/17 20:00 70 01/17/17 19:00 70 01/17/17 18:01 65 01/17/17 17:00 62 01/17/17 16:01 98.4 67 18 152/85 (107) 96 01/17/17 16:01 64 01/17/17 15:00 67 01/17/17 14:00 70 01/17/17 13:00 68 01/17/17 12:01 85 01/17/17 11:15 98.2 64 18 161/91 (114) 98 01/17/17 11:01 61 I/O 01/17/17 01/17/17 01/17/17 01/18/17 01/18/17 01/18/17 07:00 15:00 23:00 07:00 15:00 23:00 Intake Total 702 ml 240 ml Output Total 200 ml 550 ml 400 ml Balance -200 ml 152 ml -160 ml Intake Oral 702 ml 240 ml Output Urine Total 200 ml 550 ml 400 ml # Voids 4 2 # Bowel Movements 0 1 Result Diagram: 01/17/17 1008 01/17/17 1008 Objective Remarks Sitting in chair, watching TV, no acute distress Heart sounds are regular rate rhythm, no murmurs Lungs are clear bilaterally, unlabored breathing Alert and oriented 3, pleasant mood and affect A/P Assessment and Plan Mr. Dash is 76 yo, with history of anxiety, GERD, tremors, hypertension, and diabetes. Admitted for NSTEMI and hx of falling. NSTEMI - stable Hypertension -Cardiology following, plans for catheterization in a.m. -Continue home lopressor, and restarting home enalapril -aspirin, switching pravastatin to lipitor 40, ordering echo Falls PT recommending walker w/ home PT - fall precautions, neurology - Occupational therapy and speech therapy have also been consulted given that there is a family concern the patient may not be able to adequately take care of himself Diabetes -Finger sticks q ac and hs -Hb1c 7.5%, given pt's age and comorbdities, fast and prepandial sugar goals can be between 140 and 170, no need for further otherwise aggressive sugar control -Low dose Novolog sliding scale insulin Random blood sugar noted to be 79 while in [place] ED. Anxiety -will resume home xanax to minimize w/d DVT prophylaxis heparin Tahir Cunningham MD Jan 18, 2017 10:36
[2017-01-18] MEDS: ENALAPRIL MALEATE 10 MG TAB PO SCH (11:18)
[2017-01-18] MEDS: PANTOPRAZOLE SOD 20 MG DELAYED RELEASE TAB PO SCH (11:18)
[2017-01-18 12:23] LABS: CKMB 3.8 NG/ML (0.5-3.6)
--- NOTE | 2017-01-18 12:56 | PD.CARD.PN ---
Subjective Subjective Remarks No events overnight No chest pain, no SOB Objective Medications Current Medications Medications (Trade) Dose Ordered Sig/[place] Route Start Time Stop Time Status Last Admin Sodium Chloride 1,000 ml @ 100 mls/hr Q10H IV 01/16/17 23:09 01/16/17 23:09 (NS Flush) 2 ml UNSCH PRN IV FLUSH 01/16/17 23:15 (NS Flush) 2 ml BID IV FLUSH 01/17/17 09:00 01/18/17 08:49 (Zofran Inj) 4 mg Q6H PRN IVP 01/16/17 23:15 01/18/17 06:53 (Tylenol) 650 mg Q6H PRN PO 01/16/17 23:15 01/18/17 01:57 (Lindsay 5-325 Mg) 1 tab Q4H PRN PO 01/16/17 23:15 (Morphine Inj) 1 mg Q3H PRN IV PUSH 01/16/17 23:15 (Haylie-Colace) 1 tab BID PO 01/17/17 09:00 01/18/17 08:50 (Milk Of Magnesia Liq) 30 ml Q12H PRN PO 01/16/17 23:15 (Dulcolax Supp) 10 mg DAILY PRN RECTAL 01/16/17 23:15 (Lactulose Liq) 30 ml DAILY PRN PO 01/16/17 23:15 (Ecotrin Ec) 81 mg DAILY PO 01/17/17 09:00 01/18/17 08:50 (Pravachol) 40 mg DAILY PO 01/17/17 09:00 01/18/17 08:50 (Lopressor) 25 mg Q12HR PO 01/17/17 09:00 01/18/17 08:50 Heparin Sodium/ Dextrose 250 ml @ 8 mls/hr TITRATE PRN IV 01/16/17 23:45 01/18/17 06:19 (D50w (Vial) Inj) 50 ml UNSCH PRN IV PUSH 01/17/17 03:45 (Glucagon Inj) 1 mg UNSCH PRN OTHER 01/17/17 03:45 (NovoLOG SUPPLEMENTAL SCALE) 1 ACHS SLIDING SCALE SQ 01/17/17 08:00 01/18/17 12:32 (Vasotec) 20 mg DAILY PO 01/18/17 10:45 01/18/17 11:18 (Protonix) 20 mg DAILY PO 01/18/17 11:00 01/18/17 11:18 Vital Signs / I&O Vital Signs Date Time Temp Pulse Resp B/P (MAP) Pulse Ox O2 Delivery O2 Flow Rate FiO2 01/18/17 12:25 66 01/18/17 11:12 97.3 63 18 147/79 (101) 98 01/18/17 11:00 59 01/18/17 10:23 72 01/18/17 09:28 169/84 (112) 01/18/17 09:00 58 01/18/17 08:48 170/91 (117) 01/18/17 08:00 54 01/18/17 07:54 97.3 57 18 189/88 (121) 99 01/18/17 07:35 57 01/18/17 06:00 78 01/18/17 05:00 62 01/18/17 04:00 50 01/18/17 04:00 97.4 58 16 150/83 (105) 100 01/18/17 03:00 62 01/18/17 02:00 68 01/18/17 01:40 154/54 (87) 01/18/17 01:00 64 01/18/17 00:00 58 01/18/17 00:00 155/84 (107) 01/17/17 23:00 63 01/17/17 23:00 97.5 63 177/92 (120) 100 01/17/17 22:00 164/92 (116) 01/17/17 22:00 60 01/17/17 21:00 70 01/17/17 20:00 97.5 61 20 183/117 (139) 95 01/17/17 20:00 70 01/17/17 19:00 70 01/17/17 18:01 65 01/17/17 17:00 62 01/17/17 16:01 98.4 67 18 152/85 (107) 96 01/17/17 16:01 64 01/17/17 15:00 67 01/17/17 14:00 70 01/17/17 13:00 68 I/O 01/17/17 01/17/17 01/17/17 01/18/17 01/18/17 01/18/17 07:00 15:00 23:00 07:00 15:00 23:00 Intake Total 702 ml 240 ml Output Total 200 ml 550 ml 400 ml Balance -200 ml 152 ml -160 ml Intake Oral 702 ml 240 ml Output Urine Total 200 ml 550 ml 400 ml # Voids 4 2 # Bowel Movements 0 1 Physical Exam GENERAL: NAD, alert and awake SKIN: Warm and dry. HEAD: Atraumatic. Normocephalic. EYES: Pupils equal and round. No scleral icterus. No injection or drainage. ENT: No nasal bleeding or discharge. Mucous membranes pink and moist. NECK: Trachea midline. No JVD. CARDIOVASCULAR: Regular rate and rhythm. RESPIRATORY: No accessory muscle use. Clear to auscultation. Breath sounds equal bilaterally. GASTROINTESTINAL: Abdomen soft, non-tender, nondistended. Hepatic and splenic margins not palpable. MUSCULOSKELETAL: Extremities without clubbing, cyanosis, or edema. No obvious deformities. NEUROLOGICAL: Awake and alert. No obvious cranial nerve deficits. Motor grossly within normal limits. Baseline tremor PSYCHIATRIC: Appropriate mood and affect; insight and judgment normal. Laboratory Laboratory Tests Test 01/18/17 04:18 01/18/17 11:30 Activated Partial Thromboplast Time 53.3 SEC Total Creatine Kinase 338 U/L 339 U/L Creatine Kinase MB 3.3 NG/ML 3.8 NG/ML Creatine Kinase MB % 1.0 % 1.1 % Assessment and Plan Problem List: (1) HTN (hypertension) ICD Codes: I10 - Essential (primary) hypertension (2) Tremor ICD Codes: R25.1 - Tremor, unspecified (3) NSTEMI (non-ST elevated myocardial infarction) ICD Codes: I21.4 - Non-ST elevation (NSTEMI) myocardial infarction Status: Acute (4) Falls ICD Codes: W19.XXXA - Unspecified fall, initial encounter Status: Acute Assessment and Plan 1) MRI negative for CVA 2) NSTEMI Plan for cardiac catheterization in the morning, possible right radial depending on tremor 3) Concern with multiple falls Although believed to be not only his gate but moving around the house Discussed with the patient and his niece (POA) about concern with placing on DAPT Niece does not think that he will be able to take care of himself, discussed with Dr. Cunningham 4) NPO after midnight Problem Qualifiers (1) Falls: Qualified Codes: W19.XXXA - Unspecified fall, initial encounter Derrick Batista DO Jan 18, 2017 12:56
[2017-01-18] MEDS ORDERED: ALPR0.25 PO (13:51)
[2017-01-18] MEDS ORDERED: PROMETHAZINE INJ 25 MG/ML VIAL IM ONE (14:30)
--- NOTE | 2017-01-18 14:39 | HHI.PR ---
Addendum to Inpatient Note Addendum Reason: Additional Documentation Additional Information Nursing reported that the patient is now vomiting coffee-ground emesis despite having been given Zofran. I contacted cardiology, they stated that this was unlikely worsening of his angina since he did not present this way as well as since the patient is not currently complaining of any shortness of breath or chest pain actively. They recommended GI consultation, I discussed with GI who will see the patient. We will continue all blood thinners and anticoagulation at this time until adjusted or changed by GI or cardiology. Vital signs are stable with blood pressure in the 140s systolic and a pulse in the 60s while saturating on room air. I will also administer Phenergan and give a dose of Librium since the daughter states that he drinks 2 ounces of wine or whiskey daily. Tahir Cunningham MD Jan 18, 2017 14:39
--- NOTE | 2017-01-18 15:00 | PD.CONS ---
HPI History of Present Illness This is a 76 year old male who presented to the ED by [facility] and found to have NSTEMI. Heart cath was planned for Thursday morning. PMH is significant for anxiety, GERD, tremors, hypertension, and diabetes. GI was consulted for evaluation of coffee ground emesis noted today. Reports he had a EGD over 30 years ago when he had pancreatitis. Last colonoscopy was 10 years ago and was normal per patient. Patient reports that has had increasing nausea and vomiting at home, but denies hematemesis or dark stools. Does have history of GERD and takes Omeprazole 20 mg daily. Denies chronic alcohol use and states very rarely he will have a small amount of wine. G (Mohini Mims) PFSH Past Medical History Anxiety Tremor Hypertension GERD Diabetes-pt stated he takes 12 unites of Novolog in the morning, 10 units at lunch and 20 units of Levemir at night. Past Surgical History Cholecystectomy Appendectomy (Mohini Mims) Coded Allergies: No Known Allergies (Unverified , 01/16/17) Medications Current Medications Medications (Trade) Dose Ordered Sig/[place] Route PRN Reason Start Time Stop Time Status Last Admin Dose Admin Sodium Chloride 1,000 ml @ 100 mls/hr Q10H IV 01/16/17 23:09 01/16/17 23:09 Sodium Chloride (NS Flush) 2 ml UNSCH PRN IV FLUSH FLUSH AFTER USING IV ACCESS 01/16/17 23:15 Sodium Chloride (NS Flush) 2 ml BID IV FLUSH 01/17/17 09:00 01/18/17 08:49 Ondansetron HCl (Zofran Inj) 4 mg Q6H PRN IVP NAUSEA OR VOMITING 01/16/17 23:15 01/18/17 13:54 Acetaminophen (Tylenol) 650 mg Q6H PRN PO FEVER/PAIN SCALE 1 TO 2 01/16/17 23:15 01/18/17 01:57 Acetaminophen/ Hydrocodone Bitart (Lowry 5-325 Mg) 1 tab Q4H PRN PO PAIN SCALE 3 TO 5 01/16/17 23:15 Morphine Sulfate (Morphine Inj) 1 mg Q3H PRN IV PUSH Pain 6-10 01/16/17 23:15 Senna/Docusate Sodium (Haylie-Colace) 1 tab BID PO 01/17/17 09:00 01/18/17 08:50 Magnesium Hydroxide (Milk Of Magnesia Liq) 30 ml Q12H PRN PO Mild constipation 01/16/17 23:15 Bisacodyl (Dulcolax Supp) 10 mg DAILY PRN RECTAL SEVERE CONSITIPATION 01/16/17 23:15 Lactulose (Lactulose Liq) 30 ml DAILY PRN PO SEVERE CONSITIPATION 01/16/17 23:15 Aspirin (Ecotrin Ec) 81 mg DAILY PO 01/17/17 09:00 01/18/17 08:50 Pravastatin Sodium (Pravachol) 40 mg DAILY PO 01/17/17 09:00 01/18/17 08:50 Metoprolol Tartrate (Lopressor) 25 mg Q12HR PO 01/17/17 09:00 01/18/17 08:50 Heparin Sodium/ Dextrose 250 ml @ 8 mls/hr TITRATE PRN IV Coagulation Management 01/16/17 23:45 01/18/17 06:19 Dextrose (D50w (Vial) Inj) 50 ml UNSCH PRN IV PUSH HYPOGLYCEMIA-SEE COMMENTS 01/17/17 03:45 Glucagon (Glucagon Inj) 1 mg UNSCH PRN OTHER HYPOGLYCEMIA-SEE COMMENTS 01/17/17 03:45 Insulin Aspart (NovoLOG SUPPLEMENTAL SCALE) 1 ACHS SLIDING SCALE SQ 01/17/17 08:00 01/18/17 12:32 Enalapril Maleate (Vasotec) 20 mg DAILY PO 01/18/17 10:45 01/18/17 11:18 Pantoprazole Sodium (Protonix) 20 mg DAILY PO 01/18/17 11:00 01/18/17 11:18 Chlordiazepoxide (Librium) 5 mg TID PO 01/18/17 14:45 UNV Alprazolam (Xanax) 0.25 mg Q12HR PO 01/18/17 14:45 UNV Gabapentin (Neurontin) 100 mg BID PO 01/18/17 14:45 UNV Family History Mother-diabetes (type II) Father-Diabetes, smoker, heart disease, from an ID Brother-reported to have "the same walking problems I have. He can't walk a straight line either. Social History Tobacco, denies Alcohol, rare small glass of wine Illicit drug, denies (Kuefirwiner,Mohini Lashonda QUILTER FIXER) Review of Systems Gastrointestinal: COMPLAINS OF: Nausea, Vomiting, Hematemesis, DENIES: Abdominal pain, Black stools, Bloody stools, Constipation, Diarrhea, Difficulty Swallowing, Anorexia, Odynophagia, Swelling of Abdomen, Heartburn (Mohini Mims) GI Exam Vitals I&O Vital Signs Date Time Temp Pulse Resp B/P (MAP) Pulse Ox O2 Delivery O2 Flow Rate FiO2 01/18/17 12:25 66 01/18/17 11:12 97.3 63 18 147/79 (101) 98 01/18/17 11:00 59 01/18/17 10:23 72 01/18/17 09:28 169/84 (112) 01/18/17 09:00 58 01/18/17 08:48 170/91 (117) 01/18/17 08:00 54 01/18/17 07:54 97.3 57 18 189/88 (121) 99 01/18/17 07:35 57 01/18/17 06:00 78 01/18/17 05:00 62 01/18/17 04:00 50 01/18/17 04:00 97.4 58 16 150/83 (105) 100 01/18/17 03:00 62 01/18/17 02:00 68 01/18/17 01:40 154/54 (87) 01/18/17 01:00 64 01/18/17 00:00 58 01/18/17 00:00 155/84 (107) 01/17/17 23:00 63 01/17/17 23:00 97.5 63 177/92 (120) 100 01/17/17 22:00 164/92 (116) 01/17/17 22:00 60 01/17/17 21:00 70 01/17/17 20:00 97.5 61 20 183/117 (139) 95 01/17/17 20:00 70 01/17/17 19:00 70 01/17/17 18:01 65 01/17/17 17:00 62 01/17/17 16:01 98.4 67 18 152/85 (107) 96 01/17/17 16:01 64 01/17/17 15:00 67 I/O 01/17/17 01/17/17 01/17/17 01/18/17 01/18/17 01/18/17 07:00 15:00 23:00 07:00 15:00 23:00 Intake Total 702 ml 240 ml Output Total 200 ml 550 ml 400 ml Balance -200 ml 152 ml -160 ml Intake Oral 702 ml 240 ml Output Urine Total 200 ml 550 ml 400 ml # Voids 4 2 # Bowel Movements 0 1 Imaging Last Impressions Brain MRI 01/17/17 0000 Signed Impressions: Service Date/Time: Tuesday, January 17, 2017 14:42 - CONCLUSION: Age-appropriate atrophy. Otherwise negative MRI brain with and without contrast. Jose Maria Colunga MD Head CT 01/16/170 Signed Impressions: Service Date/Time: Monday, January 16, 2017 22:15 - CONCLUSION: Age-appropriate atrophy. No acute findings. Jose Maria Colunga MD Pelvis X-Ray 01/16/17 0000 Signed Impressions: Service Date/Time: Tuesday, January 17, 2017 10:08 - CONCLUSION: No fracture seen. Jose Maria Colunga MD Chest X-Ray 01/16/17 0000 Signed Impressions: Service Date/Time: Tuesday, January 17, 2017 11:15 - CONCLUSION: No acute disease. Jesús Davies MD Laboratory Test 01/18/17 04:18 01/18/17 11:30 Activated Partial Thromboplast Time 53.3 SEC Total Creatine Kinase 338 U/L 339 U/L Creatine Kinase MB 3.3 NG/ML 3.8 NG/ML Creatine Kinase MB % 1.0 % 1.1 % Date/Time Source Procedure Growth Status 01/17/17 20:25 Stool Stool Stool Occult Blood (LIZETH) - Final HEMOCCULT NEGATIVE Complete Physical Examination HEENT: Normocephalic; atraumatic. NECK: Neck is supple. CHEST: CTA CARDIAC: RRR ABDOMEN: Soft, nondistended, nontender; no hepatosplenomegaly; bowel sounds are present in all four quadrants. EXTREMITIES: No clubbing, cyanosis, or edema. SKIN: Normal; no rash; no jaundice. RESIDENTIAL DIRECTOR: No focal deficits; alert and oriented times three. (Mohini Mims) Assessment and Plan Plan ASSESSMENT: - Coffee ground emesis, noted today. Patient reports ongoing nausea and vomiting at home, but has not noted any blood in emesis or stool. Denies darks stools. Does have GERD and takes Omeprazole 20 mg daily. No alcohol abuse. HH 13.6/40.9 - NSTEMI, plan was for heart cath on Thursday morning, but this is on hold due to GIB. PLAN: - EGD on Thursday - Obtain consents - NPO at [place] - Monitor HH - Notify GI of active bleeding - Supportive care - Further recommendations to follow based on results of above Patient seen and examined by Dr. Frazier and myself and this note is written on his behalf. (Mohini Mims) Physician Comments Seen and examined with AMADO, egd planned for tomorrow. Heparin on hold for now. Monitor labs. NPO. Discussed with DR. Wei. Thank you (Ashli Frazier MD) Mohini Mims Jan 18, 2017 15:00 Ashli Frazier MD Jan 18, 2017 15:10
[2017-01-18] MEDS: GABAPENTIN 100 MG CAP PO SCH ×2 (15:48→21:38)
[2017-01-18] MEDS: ALPRAZolam 0.25 MG TAB PO SCH ×2 (15:48→21:38)
[2017-01-18] MEDS ORDERED: PROMETHAZINE INJ 25 MG/ML VIAL IM PRN (16:30)
[2017-01-18] MEDS: ATORVASTATIN 40 MG TAB PO SCH (21:38)
[2017-01-19] VITALS (20 sets, daily range): BP systolic 130–171; BP diastolic 67–87; PULSE 50–82; RESP 14–20; TEMP 97.5–98.2; O2SAT 96–100
[2017-01-19] MEDS: SODIUM CHLOR 0.9% 1000 ML INJ 1,000 ML IV SCH ×2 (01:09→10:32)
[2017-01-19 05:23] LABS: APTT (PATIENT) 33.1 SEC (24.3-30.1)
[2017-01-19 05:29] LABS: HEMATOCRIT 37.9 % (39.0-51.0); MEAN CELL VOLUME 85.6 FL (80.0-100.0); MEAN CORPUSCULAR HEMOGLOBIN 28.9 PG (27.0-34.0); MEAN CORPUSCULAR HGB CONC 33.8 % (32.0-36.0); PLATELET COUNT 235 TH/MM3 (150-450); RED BLOOD COUNT 4.43 MIL/MM3 (4.50-5.90); REVIEW FLAG FINAL; WHITE BLOOD COUNT 6.6 TH/MM3 (4.0-11.0)
[2017-01-19] MEDS: INSULIN ASPART SUPPLEMENTAL SCALE SQ SCH ×4 (08:00→21:00)
[2017-01-19] MEDS: SODIUM CHLORIDE 0.9% FLUSH 10 ML FLUSH IV FLUSH SCH (09:00)
[2017-01-19] MEDS: DOCUSATE SODIUM 50 MG/SENNA 8.6 MG TAB PO SCH ×2 (09:00→21:41)
[2017-01-19] MEDS: GABAPENTIN 100 MG CAP PO SCH ×2 (09:00→21:42)
[2017-01-19] MEDS: PANTOPRAZOLE SOD 20 MG DELAYED RELEASE TAB PO SCH (10:01)
[2017-01-19] MEDS: ASPIRIN EC 81 MG TABEC PO SCH (10:01)
[2017-01-19] MEDS: METOPROLOL TARTRATE 25 MG TAB PO SCH ×2 (10:01→21:41)
[2017-01-19] MEDS: ENALAPRIL MALEATE 10 MG TAB PO SCH (10:02)
[2017-01-19] MEDS: ALPRAZolam 0.25 MG TAB PO SCH ×2 (10:02→21:41)
[2017-01-19] MEDS ORDERED: INSULIN HUMAN REGULAR 1,000 UNITS/10 ML VIAL ONE (11:41)
--- NOTE | 2017-01-19 11:46 | HHI.PR ---
Subjective Remarks Per nursing, patient has not had any further vomiting since yesterday. Patient denies having any chest pain. Denies any vomiting today. Family member present with him at bedside. Objective Vital Signs Date Time Temp Pulse Resp B/P (MAP) Pulse Ox O2 Delivery O2 Flow Rate FiO2 01/19/17 09:56 97.9 65 14 160/84 (109) 99 01/19/17 08:14 67 01/19/17 06:00 54 01/19/17 05:00 60 01/19/17 04:00 62 01/19/17 03:00 97.5 63 16 130/67 (88) 96 01/19/17 03:00 63 01/19/17 02:00 56 01/19/17 01:00 52 01/19/17 00:00 50 01/18/17 23:00 59 01/18/17 23:00 98.4 60 20 129/65 (86) 94 01/18/17 22:00 70 01/18/17 21:00 62 01/18/17 20:00 73 01/18/17 19:00 97.6 66 16 142/81 (101) 99 01/18/17 19:00 72 01/18/17 18:00 72 01/18/17 17:00 54 01/18/17 16:00 58 01/18/17 15:40 97.7 62 18 169/88 (115) 98 01/18/17 15:00 54 01/18/17 14:00 62 01/18/17 13:00 70 01/18/17 12:25 66 I/O 01/18/17 01/18/17 01/18/17 01/19/17 01/19/17 01/19/17 07:00 15:00 23:00 07:00 15:00 23:00 Intake Total 240 ml 1897 ml 480 ml 1597 ml Output Total 400 ml 1250 ml 550 ml Balance -160 ml 647 ml -70 ml 1597 ml Intake Oral 240 ml 1360 ml 480 ml IV Total 537 ml 1597 ml Output Urine Total 400 ml 1250 ml 550 ml # Voids 2 # Bowel Movements 1 Result Diagram: 01/19/17 0501 01/17/17 1008 Objective Remarks Sitting in chair, watching TV, no acute distress Heart sounds are regular rate rhythm, no murmurs Lungs are clear bilaterally, unlabored breathing Alert and oriented 3, pleasant mood and affect A/P Assessment and Plan Mr. Dash is 76 yo, with history of anxiety, GERD, tremors, hypertension, and diabetes. Admitted for NSTEMI and hx of falling. hematemesis - GI planning for EGD today, off of heparin for now NSTEMI - stable in terms of symptoms -Cardiology following, plans for catheterization in a.m. -Continue home lopressor, home enalapril -aspirin, lipitor 40, echo is pending Falls PT recommending walker w/ home PT - fall precautions, neurology appreciate recs - Speech therapy concludes severe cognitive deficits and that the patient will need supervision after discharge. OT consultation pending Diabetes -Finger sticks q ac and hs -Hb1c 7.5%, given pt's age and comorbdities, fast and prepandial sugar goals can be between 140 and 170, no need for further otherwise aggressive sugar control -Low dose Novolog sliding scale insulin Anxiety -home xanax DVT prophylaxis SCDs, heparin on hold out of concern for bleed Tahir Cunningham MD Jan 19, 2017 11:46
--- NOTE | 2017-01-19 14:37 | GIPROC ---
[facility] [address] [facility]. [facility], [address] EGD PROCEDURE REPORT EXAM DATE: 01/19/2017 PATIENT NAME: Tanner Dash MR #: [id number] BIRTHDATE: 1940 ATTENDING: Shira Garcia MD ORDER #: [id number] PATCH DRILLER: Shiraz Campos and Sloane Fitzgerald STATUS: inpatient INDICATIONS: The patient is a 76 yr old male here for an EGD due to dyspepsia, anemia PROCEDURE PERFORMED: EGD w/ biopsy MEDICATIONS: None and Per Anesthesia. TOPICAL ANESTHETIC: none CONSENT: The patient understands the risks and benefits of the procedure and understands that these risks include, but are not limited to: sedation, allergic reaction, infection, perforation and/or bleeding. Alternative means of evaluation and treatment include, among others: physical exam, x-rays, and/or surgical intervention. The patient elects to proceed with this endoscopic procedure. medical equipment was checked for proper function. Hand hygiene and appropriate measures for infection prevention was taken. After the risks, benefits and alternatives of the procedure were thoroughly explained, Informed consent was verified, confirmed and timeout was successfully executed by the treatment team. The patient was anesthetized with topical anesthesia and the Pentax [id number] endoscope was introduced through the mouth and advanced to the second portion of the duodenum. Retroflexed views revealed a hiatal hernia The gastroscope was then slowly withdrawn and removed. Duodenitis second portion-biopsy gastritis antrum-biopsy Schatzki's ring -biopsy hiatal henia-3 cm. ADVERSE EVENTS: There were no complications. IMPRESSIONS: 1. Duodenitis second portion-biopsy gastritis antrum-biopsy Schatzki's ring -biopsy hiatal henia-3 cm 2. Retroflexed views revealed a hiatal hernia RECOMMENDATIONS: 1. Await biopsy results. Biopsy results will not be ready for 7-10 days. If you don't hear from us in two weeks, call our office for biopsy results. 2. Anti-reflux regimen 3. Continue PPI 4. Dilatations PRN PATIENT CONDITION: stable DISPOSITION: Inpatient REPEAT EXAM: Return 3 years EGD Shira Bratu MD eSigned: Shira Garcia MD 01/19/2017 2:36 PM cc: PATIENT NAME: Tanner Dash MR#: [id number]
--- NOTE | 2017-01-19 17:01 | PD.CARD.PN ---
Subjective Subjective Remarks No events overnight EGD today, prelim gastritis Objective Medications Current Medications Medications (Trade) Dose Ordered Sig/[place] Route Start Time Stop Time Status Last Admin Sodium Chloride 1,000 ml @ 100 mls/hr Q10H IV 01/16/17 23:09 01/19/17 10:32 (NS Flush) 2 ml UNSCH PRN IV FLUSH 01/16/17 23:15 (NS Flush) 2 ml BID IV FLUSH 01/17/17 09:00 01/18/17 21:39 (Zofran Inj) 4 mg Q6H PRN IVP 01/16/17 23:15 01/18/17 13:54 (Tylenol) 650 mg Q6H PRN PO 01/16/17 23:15 01/18/17 01:57 ([place] 5-325 Mg) 1 tab Q4H PRN PO 01/16/17 23:15 (Morphine Inj) 1 mg Q3H PRN IV PUSH 01/16/17 23:15 (Haylie-Colace) 1 tab BID PO 01/17/17 09:00 01/18/17 21:38 (Milk Of Magnesia Liq) 30 ml Q12H PRN PO 01/16/17 23:15 (Dulcolax Supp) 10 mg DAILY PRN RECTAL 01/16/17 23:15 (Lactulose Liq) 30 ml DAILY PRN PO 01/16/17 23:15 (Ecotrin Ec) 81 mg DAILY PO 01/17/17 09:00 01/19/17 10:01 (Lopressor) 25 mg Q12HR PO 01/17/17 09:00 01/19/17 10:01 Heparin Sodium/ Dextrose 250 ml @ 8 mls/hr TITRATE PRN IV 01/16/17 23:45 Future Hold 01/18/17 06:19 (D50w (Vial) Inj) 50 ml UNSCH PRN IV PUSH 01/17/17 03:45 (Glucagon Inj) 1 mg UNSCH PRN OTHER 01/17/17 03:45 (NovoLOG SUPPLEMENTAL SCALE) 1 ACHS SLIDING SCALE SQ 01/17/17 08:00 01/18/17 21:00 (Vasotec) 20 mg DAILY PO 01/18/17 10:45 01/19/17 10:02 (Protonix) 20 mg DAILY PO 01/18/17 11:00 01/19/17 10:01 (Librium) 5 mg TID PO 01/18/17 14:45 01/19/17 10:01 (Xanax) 0.25 mg Q12HR PO 01/18/17 14:45 01/19/17 10:02 (Neurontin) 100 mg BID PO 01/18/17 14:45 01/18/17 21:38 (Phenergan Inj) 12.5 mg Q6H PRN IM 01/18/17 16:30 (Lipitor) 40 mg HS PO 01/18/17 21:00 01/18/17 21:38 Vital Signs / I&O Vital Signs Date Time Temp Pulse Resp B/P (MAP) Pulse Ox O2 Delivery O2 Flow Rate FiO2 01/19/17 15:51 98.2 59 16 156/85 (108) 100 01/19/17 15:51 59 01/19/17 14:50 60 18 176/81 (112) 97 Room Air 01/19/17 10:00 66 01/19/17 09:56 97.9 65 14 160/84 (109) 99 01/19/17 09:00 68 01/19/17 08:14 67 01/19/17 07:00 58 01/19/17 06:00 54 01/19/17 05:00 60 01/19/17 04:00 62 01/19/17 03:00 97.5 63 16 130/67 (88) 96 01/19/17 03:00 63 01/19/17 02:00 56 01/19/17 01:00 52 01/19/17 00:00 50 01/18/17 23:00 59 01/18/17 23:00 98.4 60 20 129/65 (86) 94 01/18/17 22:00 70 01/18/17 21:00 62 01/18/17 20:00 73 01/18/17 19:00 97.6 66 16 142/81 (101) 99 01/18/17 19:00 72 01/18/17 18:00 72 01/18/17 17:00 54 I/O 01/18/17 01/18/17 01/18/17 01/19/17 01/19/17 01/19/17 07:00 15:00 23:00 07:00 15:00 23:00 Intake Total 240 ml 1897 ml 480 ml 1897 ml Output Total 400 ml 1250 ml 550 ml Balance -160 ml 647 ml -70 ml 1897 ml Intake Oral 240 ml 1360 ml 480 ml IV Total 537 ml 1597 ml Other 300 ml Output Urine Total 400 ml 1250 ml 550 ml # Voids 2 # Bowel Movements 1 Physical Exam GENERAL: NAD, alert and awake SKIN: Warm and dry. HEAD: Atraumatic. Normocephalic. EYES: Pupils equal and round. No scleral icterus. No injection or drainage. ENT: No nasal bleeding or discharge. Mucous membranes pink and moist. NECK: Trachea midline. No JVD. CARDIOVASCULAR: Regular rate and rhythm. RESPIRATORY: No accessory muscle use. Clear to auscultation. Breath sounds equal bilaterally. GASTROINTESTINAL: Abdomen soft, non-tender, nondistended. Hepatic and splenic margins not palpable. MUSCULOSKELETAL: Extremities without clubbing, cyanosis, or edema. No obvious deformities. NEUROLOGICAL: Awake and alert. No obvious cranial nerve deficits. Motor grossly within normal limits. Baseline tremor PSYCHIATRIC: Appropriate mood and affect; insight and judgment normal. Laboratory Laboratory Tests Test 01/19/17 05:01 White Blood Count 6.6 TH/MM3 Red Blood Count 4.43 MIL/MM3 Hemoglobin 12.8 GM/DL Hematocrit 37.9 % Mean Corpuscular Volume 85.6 FL Mean Corpuscular Hemoglobin 28.9 PG Mean Corpuscular Hemoglobin Concent 33.8 % Red Cell Distribution Width 14.0 % Platelet Count 235 TH/MM3 Mean Platelet Volume 7.8 FL Activated Partial Thromboplast Time 33.1 SEC Assessment and Plan Problem List: (1) HTN (hypertension) ICD Codes: I10 - Essential (primary) hypertension (2) Tremor ICD Codes: R25.1 - Tremor, unspecified (3) NSTEMI (non-ST elevated myocardial infarction) ICD Codes: I21.4 - Non-ST elevation (NSTEMI) myocardial infarction Status: Acute (4) Falls ICD Codes: W19.XXXA - Unspecified fall, initial encounter Status: Acute Assessment and Plan 1) MRI negative for CVA 2) NSTEMI Plan for cardiac catheterization in the morning, possible right radial depending on tremor Will discuss further with GI, as results from EGD not in the computer yet 3) Concern with multiple falls Although believed to be not only his gate but moving around the house Discussed with the patient and his niece (POA) about concern with placing on DAPT Niece does not think that he will be able to take care of himself, discussed with Dr. Cunningham 4) NPO after midnight Problem Qualifiers (1) Falls: Qualified Codes: W19.XXXA - Unspecified fall, initial encounter Derrick Batista DO Jan 19, 2017 17:01
--- NOTE | 2017-01-19 17:41 | ECHRPT ---
Indication: nstemi CONCLUSIONS The left ventricular systolic function is low normal with an estimated ejection fraction in the rang e of 50- 55%. Normal left ventricular size. Mild mitral valve regurgitation. No aortic valve regurgitation. No aortic valve stenosis. There is mild tricuspid valve regurgitation. The estimated pulmonary arterial pressure is 35.2 mmHg. BP: / HR: Rhythm: MEASUREMENTS (Male / Female) Normal Values Technical Quality:Good 2D ECHO LV Diastolic Diameter PLAX 4.7 cm 4.2 - 5.9 / 3.9 - 5.3 cm LV Systolic Diameter PLAX 3.7 cm IVS Diastolic Thickness 1.2 cm 0.6 - 1.0 / 0.6 - 0.9 cm LVPW Diastolic Thickness 0.9 cm 0.6 - 1.0 / 0.6 - 0.9 cm LV Relative Wall Thickness 0.5 RV Internal Dim ED PLAX 3.2 cm M-MODE Aortic Root Diameter MM 3.4 cm LA Systolic Diameter MM 4.3 cm LA Ao Ratio MM 1.3 AV Cusp Separation MM 2.3 cm DOPPLER Mitral E Point Velocity 67.1 cm/s Mitral A Point Velocity 75.5 cm/s Mitral E to A Ratio 0.9 LV E' Lateral Velocity 6.4 cm/s Mitral E to LV E' Lateral Ratio 10.4 LV E' Septal Velocity 6.1 cm/s Mitral E to LV E' Septal Ratio 10.9 TR Peak Velocity 251.0 cm/s TR Peak Gradient 25.2 mmHg Right Atrial Pressure 10.0 mmHg Pulmonary Artery Systolic Pressu 35.2 mmHg Right Ventricular Systolic Press 35.2 mmHg FINDINGS LEFT VENTRICLE The left ventricular systolic function is low normal with an estimated ejection fraction in the rang e of 50- 55%. Normal left ventricular size. RIGHT VENTRICLE Normal right ventricular size and systolic function. LEFT ATRIUM The left atrial size is normal. RIGHT ATRIUM The right atrial size is normal. ATRIAL SEPTUM Normal atrial septal thickness without atrial level shunting by limited color doppler interrogation. AORTA The aortic root and proximal ascending aorta are normal in size on limited imaging. MITRAL VALVE Mild mitral valve regurgitation. Structurally normal mitral valve. AORTIC VALVE Trileaflet aortic valve. No aortic valve regurgitation. No aortic valve stenosis. TRICUSPID VALVE There is mild tricuspid valve regurgitation. The estimated pulmonary arterial pressure is 35.2 mmHg. Structurally normal tricuspid valve. PULMONARY VALVE No pulmonary valve regurgitation or stenosis. VESSELS The inferior vena cava is normal in size. PERICARDIUM No pericardial effusion. Sb Myles MD (Electronically Signed) Final Date:19 January 2017 17:39
[2017-01-19] MEDS: ATORVASTATIN 40 MG TAB PO SCH (21:41)
[2017-01-20] VITALS (24 sets, daily range): BP systolic 129–175; BP diastolic 60–92; PULSE 49–86; RESP 18–20; TEMP 97.6–98.7; O2SAT 96–100
[2017-01-20 06:48] LABS: APTT (PATIENT) 32.4 SEC (24.3-30.1)
[2017-01-20] MEDS: SODIUM CHLORIDE 0.9% FLUSH 10 ML FLUSH IV FLUSH SCH ×2 (08:27→21:14)
[2017-01-20] MEDS: INSULIN ASPART SUPPLEMENTAL SCALE SQ SCH ×4 (08:27→21:00)
[2017-01-20] MEDS: GABAPENTIN 100 MG CAP PO SCH ×2 (08:28→21:14)
[2017-01-20] MEDS: ENALAPRIL MALEATE 10 MG TAB PO SCH (08:28)
[2017-01-20] MEDS: METOPROLOL TARTRATE 25 MG TAB PO SCH ×2 (08:29→21:14)
[2017-01-20] MEDS: ASPIRIN EC 81 MG TABEC PO SCH (08:29)
[2017-01-20] MEDS: DOCUSATE SODIUM 50 MG/SENNA 8.6 MG TAB PO SCH (08:29)
[2017-01-20] MEDS: PANTOPRAZOLE SOD 20 MG DELAYED RELEASE TAB PO SCH (08:30)
[2017-01-20] MEDS: ALPRAZolam 0.25 MG TAB PO SCH ×2 (08:30→21:14)
[2017-01-20] MEDS: SODIUM CHLOR 0.9% 1000 ML INJ 1,000 ML IV SCH ×2 (08:30→17:34)
[2017-01-20] MEDS ORDERED: HEPARIN-NS/PF INJ 500 ML ONE (11:05)
[2017-01-20] MEDS ORDERED: VERAPAMIL HCL 5 MG/2 ML VIAL ONE (11:06)
[2017-01-20] MEDS ORDERED: NITROGLYCERIN INJ 5 ML ONE (11:06)
[2017-01-20] MEDS ORDERED: HEPARIN SODIUM - IV 10,000 UNITS/10 ML VIAL ONE (11:06)
[2017-01-20] MEDS ORDERED: MIDAZOLAM HCL 2 MG/2 ML VIAL ONE (11:19)
[2017-01-20] MEDS ORDERED: MISC INFORMATION XX ONE (12:15)
--- NOTE | 2017-01-20 12:19 | CATHPROC ---
[employer] HIS Report Study Information Study Number Admission Scheduled Start Study Start [id number] Jan 16 2017 10:59PM 01/19/2017 Jan 20 2017 10:27AM [place] [facility] Cardiac Catheterization Admit Source Facility Department Other [facility] - Fuel Cell Engineer Physician and Clinical Staff Initial Derrick Alvarez Special Technical Operations Officer Omaira Miranda,HALLEY Other cathlab, cathlab Recorder Reymundo Dela Cruz RCIS(BS) Scrub Ileana Erwin,RT(R) (BS) Procedures Performed Procedure Location (Site) Vessel Name Coronary Angiograms LCA Left Coronary Coronary Angiograms RCA Right Coronary L Heart Cath Wire insertion Radial (right) Radial Art. Equipment Time Transportation Security Officer Description Size Mfg Part Number Used/Scraped [id number] 11:24 [employer] MEDICAL WIRE, NITONOL 80CM 80CM Used *[id number] TRANSDUCER, TRUWAVE [id number] 10:28 DIETRICH LÓPEZ * Used W/STOCKCOCK *[id number] 11:49 CARDIVA MEDICAL VASCADE, FR5 CLOSURE SYSTEM FR 5 Used *[id number] INTRODUCER SET, [id number] 11:32 [employer]. FR 5 Used MICROPUNCTURE *[id number] *[id number] *[id number] 10:28 [employer] PACK, CCL CUSTOM * Used *[id number] 10:28 [employer] SUPPORT, ARTERIAL ADULT 03316 *[id number] Used [id number] 10:28 [employer] MEDICAL WIRE, EXCHANGE 260CM 3MMJ 260CM Used *[id number] 10:28 NAMIC MANIFOLD, 4 PORT * Used *[id number] 10:28 [employer]COMED OMNIPAQUE, 350 MG, 150ML 150ML [id number] Used [id number] 10:28 HERNANDEZ MEDICAL BLANKET,WARM AIR CCL * Used *[id number] 11:29 TERUMO MEDICAL SHEATH, FR5 TERUMO (10CM) FR 5 Used *[id number] SHEATH, FR6 TRANSRADIAL RM*[id number] 10:28 TERUMO MEDICAL FR 6 Used SLENDER 10CM *[id number] History: Current Medications Medication Dosage/Unit Route Frequency Last Date/Time Taken Xanax History: Allergies Allergy Reaction No Known Allergies History: Risk Factors Family History of Hypertension Dyslipidemia Previous [place] Previous Heart Failure Premature CAD Yes Yes Yes No No Prior Valve Prior PCI Prior CABG Surgery No No No Cerebrovascular Peripheral Artery Chronic Lung On Dialysis Diabetes Diabetes Therapy Disease Disease Disease No No No No Yes Insulin History: Symptoms/Diagnosis Selection Items Syncope History: Stress Tests Stress or Imaging Studies Performed No History: Other Current Smoker No Labs Hgb (g/dl) Hct (%) WBC (l/cumm) Platelets (thousands) 11.60-17.00 35.00-51.00 4.00-11.00 150.00-450.00 12.8 37.9 6.6 238 Glucose (mg/dl) BUN (mg/dl) Creatinine (mg/dl) BUN:Creatinine (1:x) 74.00-106.00 7.00-18.00 0.50-1.30 10.00-20.00 193 11 0.8 13.8 Na (meq/l) K (meq/l) 136.00-145.00 3.50-5.10 138 3.7 INR (PTT:PT) 0.90-1.10 1 Troponin I (ng/ml) CPK (u/l) CPK-MB (ng/ML) 0.02-0.05 26.00-308.00 0.50-3.60 1.3 339 3.8 Medication Medication Total Dose (Bolus/Oral) Medication Total Dosage/Unit 1% XYLOCAINE 23 mL FENTANYL 25 mcg VERSED 0.5 mg Medications (Bolus/Oral) Medication Time Given Dosage/Unit Administered By Reason 01/20/2017 11:20:12 VERSED 0.5 mg Omaira Miranda AM 0.5 mg VERSED given in lab by Omaira Miranda, HALLEY in Right Forearm via Peripheral IV. Ordered by Derrick Alvarez 01/20/2017 11:21:16 FENTANYL 25 mcg Omaira Miranda AM 25 mcg FENTANYL given in lab by Omaira Miranda, HALLEY in Right Forearm via Peripheral IV. Ordered by Derrick Lan 01/20/2017 11:21:32 1% XYLOCAINE 3 mL Derrick Batista AM 3 mL 1% XYLOCAINE given in lab by Derrick Batista in Right Radial via Subcutaneous. 01/20/2017 11:29:55 1% XYLOCAINE 20 mL Derrick Batista AM 20 mL 1% XYLOCAINE given in lab by Derrick Batista in Right Groin via Subcutaneous. Medication (Drip) Medication Time Given Dosage/Unit Concentration/Unit Diluent (ml) Solution 01/20/2017 10:50:25 IV Solutions 0 mL (IV) 500 NaCl .9 AM Patient arrived on IV Solutions given by Omaira Miranda RN in Right Forearm via Peripheral IV. Pump /Drip Flow = 20 ml/hr using NaCl .9. Ordered by Derrick Batista Initial Case Assessment Cardiovascular HR Rhythm NIBP Chest Pain 66 NSR 193/89 0 Edema Present Skin color Skin None Normal Warm Dry Circulatory - Right Pulses Posterior Tibial Femoral Radial 1 2 2 Scale (0,1,2,3,4,d) Circulatory - Left Pulses Posterior Tibial Femoral Radial 1 2 Scale (0,1,2,3,4,d) Neurological State Oriented to time-place- Alert Moves all extremities person Respiration - General Respiration Rate SpO2 (%) (B/min) 19 97 Chronological Log Time Study Chronological Log 10:50:11 Patient arrived via Bed. 10:50:12 Patient Name, D.O.B, / Armband Verified By R.N. 10:50:14 Consent signed by the physician and the patient and verified by the Fuel Cell Engineer staff. 10:50:14 Pre-op and post- op instructions given; patient acknowledges understanding of instruction s. 10:50:15 Verbal Stimulation=2 Physical Stimulation=2 Airway=2 Respiration=2 TOTAL=8. (0=absent, 1= limited, 2=present) 10:50:16 Presedation assessment performed by Fuel Cell Engineer RN. 10:50:16 Allens test performed on the right radial and ulnar artery. 10:50:17 Immediate Presedation assesment performed by physician. 10:50:18 Patient has been NPO for More than 6Hrs. 10:50:18 Skin Breakdown- NONE PER PATIENT 10:50:20 Patient Warmer Placed on the Table. 10:50:24 Ayaka Prominences Protected 10:50:25 A # 20 IV was noted in the Forearm (right). Grade = 0 Patient arrived on IV Solutions given by Omaira Miranda, HALLEY in Right Forearm via Peripheral IV . Pump/Drip Flow = 20 10:50:25 ml/hr using NaCl .9. Ordered by Derrick Batista 10:50:26 History and physical on the chart or being dictated. Vitals capture started with the following parameters, Patient=Adult, Interval=5 min, Initial Pr kuvmyd=749 mmHg, 10:58:28 Deflation Rate=5 mmHg, Cuff placed on Left Arm 11:00:19 HR=73 bpm, WZRC=508/89 mmhg, SpO2=97.0 %, Resp=19 B/min, Pain=0, Olivia=10, Young=2 11:00:53 Reference ECG taken Assessment: Initial Case, HR=66 BPM, Rhythm=NSR, OFXD=855/89 mmhg, Chest Pain=0, Edema=None, Color=Normal, Skin = Warm, Dry Right Pulses: Post Tib=1, Femoral=2, Radial=2 11:00:55 Left Pulses: Post Tib=1, Femoral=2 Neurological: State=Alert, Ox3, ACEVES Respiration: Resp=19 B/min, SpO2=97 % 11:04:17 HR=66 bpm, VOKT=375/89 mmhg, SpO2=97.0 %, Resp=18 B/min, Pain=0, Olivia=10, Young=2 11:09:12 HR=66 bpm, AJQB=215/86 mmhg, SpO2=98.0 %, Resp=16 B/min, Pain=0, Olivia=10, Young=2 11:10:03 Right Radial and groin(s) prepped with 2% chlorhexidine, and draped after a 3 min. waiting time. 11:13:25 MD arrived. 11:13:35 Contrast Scanned 11:13:36 Immediate Presedation assesment performed by physician. 11:14:49 HR=66 bpm, XVFP=378/85 mmhg, SpO2=98.0 %, Resp=15 B/min, Pain=0, Olivia=10, Young=2 11:17:01 Pressure channel 1 zeroed. Time Out. Correct patient, correct procedure, correct physician, power injector not loaded with contrast with surgical 11:18:27 team present. Time Out Concurred by MD and individual staff in procedure. 11:19:03 Case Start 11:19:04 Verbal Stimulation=2 Physical Stimulation=2 Airway=2 Respiration=2 TOTAL=8. (0=absent, 1=li mited, 2=present) 11:19:14 HR=66 bpm, XLMP=976/87 mmhg, SpO2=98.0 %, Resp=17 B/min, Pain=0, Olivia=10, Young=2 11:20:12 0.5 mg VERSED given in lab by Omaira Miranda, RN in Right Forearm via Peripheral IV. Order ed by Derrick Batista. 25 mcg FENTANYL given in lab by Omaira Miranda, RN in Right Forearm via Peripheral IV. Ordered by Derrick Batista 11:21:16 G. 11:21:32 3 mL 1% XYLOCAINE given in lab by Derrick Batista in Right Radial via Subcutaneous. 11:21:38 Access site was Right Radial Artery. 11:24:10 A WIRE, NITONOL 80CM 80CM was inserted via Radial (right). 11:24:13 HR=67 bpm, NRGM=651/87 mmhg, SpO2=96.0 %, Resp=17 B/min, Pain=0, Olivia=10, Young=2 11:28:02 Wire will not advance via Right Radial, moving to RFA 11:29:12 HR=66 bpm, TXNW=564/88 mmhg, SpO2=97.0 %, Resp=14 B/min, Pain=0, Olivia=10, Young=2 11:29:55 20 mL 1% XYLOCAINE given in lab by Derrick Batista in Right Groin via Subcutaneous. 11:31:33 Access site was Right Femoral Artery. 11:31:46 A INTRODUCER SET, MICROPUNCTURE FR 5 was advanced into the Fem Art (right) using the Percut aneous technique. A SHEATH, FR5 TERUMO (10CM) FR 5 was exchanged in the Fem Art (right). This was necessary in or derek to 11:32:15 accomodate a larger catheter. 11:32:22 An injection in the Fem Art (right) was made through the SHEATH, FR5 TERUMO (10CM) FR 5. 11:34:13 HR=65 bpm, GEXT=839/82 mmhg, SpO2=95.0 %, Resp=16 B/min, Pain=0, Olivia=10, Young=2 A JR 4.0 INFINITI CATHETER FR 5 was advanced over a wire. OMNIPAQUE, 350 MG, 150ML 150ML was us ed for 11:34:34 injections. Recorded Pressure: LV, HR=66, Condition=Condition 1 11:36:13 (Left Ventricle) LV 181/6/25 Recorded Pressure: LV, Ao, HR=67, Condition=Condition 1 11:36:28 (Left Ventricle) LV 171/3/18, (Aorta) Ao 167/65/107 Recorded Pressure: Ao, HR=67, Condition=Condition 1 11:36:39 (Aorta) Ao 166/61/105 11:37:22 The RCA was injected and visualized at various angles. OMNIPAQUE, 350 MG, 150ML 150ML use d. After removing the current catheter a JL 4.0 INFINITI CATHETER FR 5 was advanced over a WIRE, EXCHANGE 260CM 11:38:47 3MMJ 260CM. 11:39:14 HR=67 bpm, TSDN=332/80 mmhg, SpO2=95.0 %, Resp=15 B/min, Pain=0, Olivia=10, Young=2 11:42:14 The LCA was injected and visualized at various angles. OMNIPAQUE, 350 MG, 150ML 150ML use d. 11:44:13 HR=70 bpm, JQGG=399/79 mmhg, SpO2=93.0 %, Resp=17 B/min, Pain=0, Olivia=10, Young=2 11:48:26 Catheter was removed 11:49:12 HR=72 bpm, JJRN=497/80 mmhg, SpO2=93.0 %, Resp=16 B/min, Pain=0, Olivia=10, Young=2 11:49:32 VASCADE, FR5 CLOSURE SYSTEM FR 5 placement in the Fem Art (right) 11:53:19 Closure device failed, pressure applied to site. 11:54:11 HR=68 bpm, TXDG=016/80 mmhg, SpO2=94.0 %, Resp=17 B/min, Pain=0, Olivia=10, Young=2 11:57:30 Case End 11:59:12 HR=63 bpm, PHKJ=206/82 mmhg, SpO2=96.0 %, Resp=15 B/min, Young=2 12:04:15 HR=61 bpm, AFAE=127/77 mmhg, SpO2=95.0 %, Resp=11 B/min, Young=2 12:08:33 Contrast Scanned 12:08:39 A Left Heart Cath was performed. 12:09:10 HR=59 bpm, NAMI=993/88 mmhg, SpO2=94.0 %, Resp=14 B/min, Young=2 12:10:45 Sterile dressing applied to site 12:14:56 HR=61 bpm, WVRA=717/78 mmhg, Resp=12 B/min, Young=2 12:17:36 Patient moved to stretcher End Study - Contrast Media Used In Study Contrast Total Opened (mL) Total Used (mL) Total Wasted (mL) Omnipaque 85 85 0 End Study - Maximum Contrast Load Max Contrast Load (mL) 419.9 End Study - Radiation Exposure Fluoro Time (minutes) 4.7 End Study - Patient Disposition Complications Transferred To Telemetry Bed
--- NOTE | 2017-01-20 13:00 | HHI.PR ---
Subjective Remarks Follow-up non-ST elevation NC/hematemesis and now multivessel CAD 01/20/17-patient seen and examined, he started post left heart catheterization with finding of multivessel disease. Case discussed with cardiology. Objective Vitals Vital Signs Date Time Temp Pulse Resp B/P (MAP) Pulse Ox O2 Delivery O2 Flow Rate FiO2 01/20/17 10:00 62 01/20/17 09:00 86 01/20/17 08:21 98.5 63 18 158/80 (106) 100 01/20/17 08:00 72 01/20/17 07:07 62 01/20/17 06:00 54 01/20/17 05:00 76 01/20/17 04:00 49 01/20/17 04:00 98.5 59 20 129/60 (83) 98 01/20/17 03:00 56 01/20/17 02:00 52 01/20/17 01:00 54 01/20/17 00:00 97.6 60 20 165/85 (111) 98 01/20/17 00:00 55 01/19/17 23:00 56 01/19/17 22:00 60 01/19/17 21:00 60 01/19/17 20:00 98.2 62 20 171/87 (115) 97 01/19/17 20:00 65 01/19/17 19:00 82 01/19/17 18:24 62 01/19/17 17:00 59 01/19/17 15:51 98.2 59 16 156/85 (108) 100 01/19/17 15:51 59 01/19/17 14:50 60 18 176/81 (112) 97 Room Air I/O 01/19/17 01/19/17 01/19/17 01/20/17 01/20/17 01/20/17 07:00 15:00 23:00 07:00 15:00 23:00 Intake Total 480 ml 1897 ml 440 ml Output Total 550 ml 400 ml Balance -70 ml 1897 ml 40 ml Intake Oral 480 ml 240 ml IV Total 1597 ml 200 ml Other 300 ml Output Urine Total 550 ml 400 ml # Bowel Movements 1 Result Diagram: 01/19/17 0501 01/17/17 1008 Imaging Last Impressions Brain MRI 01/17/17 0000 Signed Impressions: Service Date/Time: Tuesday, January 17, 2017 14:42 - CONCLUSION: Age-appropriate atrophy. Otherwise negative MRI brain with and without contrast. Jose Maria Colunga MD Head CT 01/16/17 2150 Signed Impressions: Service Date/Time: Monday, January 16, 2017 22:15 - CONCLUSION: Age-appropriate atrophy. No acute findings. Jose Maria Colunga MD Pelvis X-Ray 01/16/17 0000 Signed Impressions: Service Date/Time: Tuesday, January 17, 2017 10:08 - CONCLUSION: No fracture seen. Jose Maria Colunga MD Chest X-Ray 01/16/17 0000 Signed Impressions: Service Date/Time: Tuesday, January 17, 2017 11:15 - CONCLUSION: No acute disease. Jesús Davies MD Objective Remarks GENERAL: NAD SKIN: Warm and dry. HEAD: Normocephalic. EYES: No scleral icterus. No injection or drainage. NECK: Supple, trachea midline. No JVD or lymphadenopathy. CARDIOVASCULAR: Regular rate and rhythm without murmurs, gallops, or rubs. RESPIRATORY: Breath sounds equal bilaterally. No accessory muscle use. GASTROINTESTINAL: Abdomen soft, non-tender, nondistended. MUSCULOSKELETAL: No cyanosis, or edema. BACK: Nontender without obvious deformity. No CVA tenderness. A/P Problem List: (1) Multi-vessel coronary artery stenosis ICD Code: I25.10 - Atherosclerotic heart disease of [place] coronary artery without angina pectoris (2) NSTEMI (non-ST elevated myocardial infarction) ICD Code: I21.4 - Non-ST elevation (NSTEMI) myocardial infarction Status: Acute (3) Falls ICD Code: W19.XXXA - Unspecified fall, initial encounter Status: Acute Assessment and Plan 76-year-old man with Multivessel coronary artery stenosis Status post left heart catheterization 01/20/17 CTS consultation pending for evaluation for possible CABG Currently on beta brad/aspirin/Lipitor Will Hold ENRIKE inhibitor Heparin drip on hold d/t GI bleed Non-ST elevation NC Status post left heart catheterization 01/20/17 Management per cardiology Continue with aspirin/Lipitor/brad Heparin drip was on hold d/t GI bleed 2-D echo with EF 50-55% Hematemesis Status post EGD with finding of duodenitis and gastritis Continue with PPI Appreciate input from GI Falls Fall precautions PT/OT to treat and eval Diabetes DM2 A1c 7.5 Currently on sliding scale insulin Will discharge home on by mouth oral hypoglycemic agents Consult educator senior clinical nurse Anxiety Continue Xanax DVT prophylaxis SCDs, heparin on hold out of concern for bleed Problem Qualifiers (1) Falls: Qualified Codes: W19.XXXA - Unspecified fall, initial encounter Oscar Desai MD Jan 20, 2017 13:00
[2017-01-20] MEDS: hydrALAZINE HCL 25 MG TAB PO PRN (15:02)
[2017-01-20] MEDS: ENALAPRILAT 2.5 MG/2 ML VIAL IV PUSH PRN (17:33)
--- NOTE | 2017-01-20 17:43 | EKG ---
Date Performed: 01/18/2017 Time Performed: 14:48:38 PTAGE: 76 years EKG: Sinus bradycardia Prolonged QT interval Inferior infarct - age undetermined Lateral ST-T ch anges may be due to myocardial ischemia Since previous tracing, no significant change noted Abnormal ECG PREVIOUS TRACING : 01/16/2017 22.56 DOCTOR: Silvana Hall Interpretating Date/Time 01/20/2017 17:42:44
--- NOTE | 2017-01-20 19:22 | PD.CARD.PN ---
Subjective Subjective Remarks Patient was seen earlier today after his catheterization Doing well Objective Medications Current Medications Medications (Trade) Dose Ordered Sig/[place] Route Start Time Stop Time Status Last Admin Sodium Chloride 1,000 ml @ 100 mls/hr Q10H IV 01/16/17 23:09 01/20/17 17:34 (NS Flush) 2 ml UNSCH PRN IV FLUSH 01/16/17 23:15 (NS Flush) 2 ml BID IV FLUSH 01/17/17 09:00 01/18/17 21:39 (Zofran Inj) 4 mg Q6H PRN IVP 01/16/17 23:15 01/18/17 13:54 (Tylenol) 650 mg Q6H PRN PO 01/16/17 23:15 01/18/17 01:57 (Hiko 5-325 Mg) 1 tab Q4H PRN PO 01/16/17 23:15 01/20/17 17:41 (Morphine Inj) 1 mg Q3H PRN IV PUSH 01/16/17 23:15 (Milk Of Magnesia Liq) 30 ml Q12H PRN PO 01/16/17 23:15 (Ecotrin Ec) 81 mg DAILY PO 01/17/17 09:00 01/20/17 08:29 (Lopressor) 25 mg Q12HR PO 01/17/17 09:00 01/20/17 08:29 (D50w (Vial) Inj) 50 ml UNSCH PRN IV PUSH 01/17/17 03:45 (Glucagon Inj) 1 mg UNSCH PRN OTHER 01/17/17 03:45 (NovoLOG SUPPLEMENTAL SCALE) 1 ACHS SLIDING SCALE SQ 01/17/17 08:00 01/20/17 17:34 (Vasotec) 20 mg DAILY PO 01/18/17 10:45 01/20/17 08:28 (Protonix) 20 mg DAILY PO 01/18/17 11:00 01/20/17 08:30 (Librium) 5 mg TID PO 01/18/17 14:45 Future Hold 01/20/17 08:30 (Xanax) 0.25 mg Q12HR PO 01/18/17 14:45 01/20/17 08:30 (Neurontin) 100 mg BID PO 01/18/17 14:45 01/20/17 08:28 (Phenergan Inj) 12.5 mg Q6H PRN IM 01/18/17 16:30 (Lipitor) 40 mg HS PO 01/18/17 21:00 01/19/17 21:41 (Apresoline) 25 mg Q8HR PRN PO 01/20/17 14:30 01/20/17 15:02 (Vasotec Inj) 2.5 mg Q6H PRN IV PUSH 01/20/17 14:30 01/20/17 17:33 Vital Signs / I&O Vital Signs Date Time Temp Pulse Resp B/P (MAP) Pulse Ox O2 Delivery O2 Flow Rate FiO2 01/20/17 18:00 62 01/20/17 17:00 78 01/20/17 16:00 60 01/20/17 15:32 65 01/20/17 15:00 98.2 61 18 175/92 (119) 98 01/20/17 14:00 60 01/20/17 12:30 98.6 60 18 169/82 (111) 98 01/20/17 10:00 62 01/20/17 09:00 86 01/20/17 08:21 98.5 63 18 158/80 (106) 100 01/20/17 08:00 72 01/20/17 07:07 62 01/20/17 06:00 54 01/20/17 05:00 76 01/20/17 04:00 49 01/20/17 04:00 98.5 59 20 129/60 (83) 98 01/20/17 03:00 56 01/20/17 02:00 52 01/20/17 01:00 54 01/20/17 00:00 97.6 60 20 165/85 (111) 98 01/20/17 00:00 55 01/19/17 23:00 56 01/19/17 22:00 60 01/19/17 21:00 60 01/19/17 20:00 98.2 62 20 171/87 (115) 97 01/19/17 20:00 65 I/O 01/19/17 01/19/17 01/19/17 01/20/17 01/20/17 01/20/17 06:59 14:59 22:59 06:59 14:59 22:59 Intake Total 480 ml 1897 ml 440 ml 1550 ml Output Total 550 ml 400 ml 720 ml Balance -70 ml 1897 ml 40 ml 830 ml Intake Oral 480 ml 240 ml 480 ml IV Total 1597 ml 200 ml 1070 ml Other 300 ml Output Urine Total 550 ml 400 ml 720 ml # Bowel Movements 1 0 Physical Exam GENERAL: NAD, alert and awake SKIN: Warm and dry. HEAD: Atraumatic. Normocephalic. EYES: Pupils equal and round. No scleral icterus. No injection or drainage. ENT: No nasal bleeding or discharge. Mucous membranes pink and moist. NECK: Trachea midline. No JVD. CARDIOVASCULAR: Regular rate and rhythm. RESPIRATORY: No accessory muscle use. Clear to auscultation. Breath sounds equal bilaterally. GASTROINTESTINAL: Abdomen soft, non-tender, nondistended. Hepatic and splenic margins not palpable. MUSCULOSKELETAL: Extremities without clubbing, cyanosis, or edema. No obvious deformities. NEUROLOGICAL: Awake and alert. No obvious cranial nerve deficits. Motor grossly within normal limits. Baseline tremor PSYCHIATRIC: Appropriate mood and affect; insight and judgment normal. Laboratory Laboratory Tests Test 01/20/17 05:55 Activated Partial Thromboplast Time 32.4 SEC Assessment and Plan Problem List: (1) HTN (hypertension) ICD Codes: I10 - Essential (primary) hypertension (2) Tremor ICD Codes: R25.1 - Tremor, unspecified (3) NSTEMI (non-ST elevated myocardial infarction) ICD Codes: I21.4 - Non-ST elevation (NSTEMI) myocardial infarction Status: Acute (4) Falls ICD Codes: W19.XXXA - Unspecified fall, initial encounter Status: Acute Assessment and Plan 1) MRI negative for CVA 2) NSTEMI MVCAD CT surgery evaluation Overall patient appears asymptomatic, discussed with niece (POA) if turned down for surgery or does not want surgery, would plan on medical management for now Will plan to add Norvasc due to HTN 3) Concern with multiple falls Although believed to be not only his gate but moving around the house Discussed with the patient and his niece (POA) about concern with placing on DAPT if PCI Niece does not think that he will be able to take care of himself, discussed with Dr. Cunningham Problem Qualifiers (1) Falls: Qualified Codes: W19.XXXA - Unspecified fall, initial encounter Derrick Batista DO Jan 20, 2017 19:22
[2017-01-20] MEDS: ATORVASTATIN 40 MG TAB PO SCH (21:14)
--- NOTE | 2017-01-20 21:54 | MA ---
cc: DERRICK GARCES DO DATE 01/20/2017 PROCEDURE Left heart catheterization, coronary angiogram, moderate sedation 37 minutes. PREPROCEDURE DIAGNOSIS Non-ST elevation myocardial infarction. POSTPROCEDURE DIAGNOSIS Multivessel coronary artery disease. MEDICATIONS 1. Versed 0.5 mg. 2. Fentanyl 25 mcg. CONTRAST USED 85 mL. FLUOROSCOPY 4.7 minutes ANESTHESIA Moderate sedation 37 minutes ESTIMATED BLOOD LOSS 10 mL PROCEDURAL SUMMARY Tanner Dash is a pleasant 76-year-old male who originally presented to [facility] due to unsteady gait and falls. He was found to have an elevated troponin and because of this he was recommended cardiac catheterization. Risks, benefits and alternatives were explained to him and his niece who is his power of guitar maker hand and he consented as such. He was brought to lab and prepped in the usual sterile fashion. Right radial artery was unable to be accessed and so this was changed to a right femoral access site. A modified Seldinger technique and placement of 5-Kosovan sheath was done without complication. A JR-4 was advanced to the ascending aorta and across the aortic valve for measurement of left ventricular pressure. This was pulled back across the aortic valve showing no significant gradient of aortic stenosis. JR-4 was used for selective angiography of the right coronary artery system. This was exchanged out for a JL-4 which was used for selective angiography of the left coronary artery system. JL-4 was removed over a J-wire. A VASCADE closure device was used to close the femoral artery arteriotomy site. There was a question of possible failure and so pressure was held for total hemostasis. 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 FINDINGS Left main. Normal size vessel with adequate reflux. It bifurcates into an LAD and circumflex. LAD. Normal-size vessel with a long tubular lesion with diffuse disease of 80-90%. The diagonal comes off at this point and has an 80% lesion in the ostial portion. Left circumflex. Normal size vessel with mild luminal irregularities throughout. It gives off three obtuse marginals with the first and third having no significant disease and the second having a ostial lesion of 60%. RIGHT CORONARY ARTERY. Normal-size vessel with a 99% subtotal occlusion in the proximal portion of the PDA. LVEDP 18. IMPRESSION 1. Non-ST elevation myocardial infarction. 2. Multivessel coronary artery disease. 3. Frequent falls due to unsteady gait. RECOMMENDATIONS 1. Mr. Dash appears to have multivessel disease with a complex lesion of the LAD diagonal and because of this he will be referred to CT surgery for possible coronary artery bypass grafting. 2. If turned down for coronary artery bypass grafting or does not want the procedure, I do not believe he would be the best of candidates for possible PCI as the patient is currently asymptomatic and has frequent falls. I discussed this with his niece who is his p.o.a., and my overall concern for placing him on dual antiplatelet therapy. 3. We will plan on continuing him on medical management until decision is made with CT surgery. 4. Overall he needs better blood pressure control and Norvasc will be added for its antihypertensive and anti-anginal properties. 5. Further recommendations will be made after seen by CT surgery. Thank you for allowing me to see Tanner Dash. If there are any questions please do not hesitate to call. Derrick Garces DO VGP/KK /8:04 PM /9:25 PM
[2017-01-21] VITALS (28 sets, daily range): BP systolic 145–183; BP diastolic 79–95; PULSE 54–82; RESP 16–20; TEMP 97.5–98.7; O2SAT 65–97
[2017-01-21 05:49] LABS: AUTOMATED NEUTROPHIL # 5.1 TH/MM3 (1.8-7.7); BASOPHIL % 0.2 % (0.0-2.0); EOSINOPHIL # 0.1 TH/MM3 (0-0.4); EOSINOPHIL % 1.4 % (0.0-4.0); HEMATOCRIT 39.2 % (39.0-51.0); HEMO FLAGS DIFF FINAL; LYMPHOCYTE # 1.5 TH/MM3 (1.0-4.8); MEAN CELL VOLUME 86.3 FL (80.0-100.0); MEAN CORPUSCULAR HEMOGLOBIN 28.7 PG (27.0-34.0); MEAN CORPUSCULAR HGB CONC 33.3 % (32.0-36.0); MONO % 9.1 % (0.0-8.0); NEUT % 69.3 % (16.0-70.0); PLATELET COUNT 255 TH/MM3 (150-450); RED BLOOD COUNT 4.54 MIL/MM3 (4.50-5.90); RED CELL DISTRIBUTION WIDTH 14.3 % (11.6-17.2); WHITE BLOOD COUNT 7.4 TH/MM3 (4.0-11.0)
[2017-01-21 06:14] LABS: BICARBONATE 28.5 MEQ/L (21.0-32.0); POTASSIUM 3.6 MEQ/L (3.5-5.1)
--- NOTE | 2017-01-21 08:14 | MB ---
cc: MILO BABB MD DATE OF CONSULTATION: 01/20/2017 DATE OF : 1940 HISTORY OF PRESENT ILLNESS: The patient is a 76-year-old male apparently called after he fell at home. He was taken to [place] emergency department. Apparently he has been having some falls recently with some tremors in his upper extremities for the last five years. He does live alone. He still drives his car but he has had multiple falls in the past. He has been seen by Dr. Hooper for ataxia and evaluated for cerebellar atrophy, possible Parkinson's. His power of bankruptcy attorney is his niece, Chrissy Be. He had an elevated troponin of 1.46 and was therefore transferred to [facility]. He underwent cardiac catheterization by Dr. Batista which showed a proximal LAD and 90% stenosis, mid distal LAD of 70% stenosis, diagonal 80%, obtuse marginal 50%, and RCA 99%. Ejection fraction 50%. We were consulted to evaluate for coronary artery bypass grafting. The patient also underwent 2-D echocardiogram which showed an ejection fraction there of 50%, mild mitral regurgitation. PAST MEDICAL HISTORY: Mostly obtained from the chart since he is somewhat of poor historian, includes anxiety, frequent falls, hypertension, gastroesophageal reflux disease, diabetes mellitus. PAST SURGICAL HISTORY: Cholecystectomy, appendectomy. ALLERGIES: NONE KNOWN. HOME MEDICATIONS: 1. Enalapril. 2. Xanax. 3. Omeprazole. FAMILY HISTORY: Mother from heart disease. Father also from heart disease. 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 No tobacco or alcohol. REVIEW OF SYSTEMS: 12 systems reviewed, other than pertinent positives, otherwise negative. PHYSICAL EXAMINATION: VITAL SIGNS: On exam blood pressure 170/80, heart rate 60, afebrile. General: The patient is awake, very poor historian. HEENT: Head is normocephalic, atraumatic. Pupils equal and reactive. Oral mucosa pink, moist. Neck: Supple. No JVD. Heart: Heart sounds S1-S2, regular rate and rhythm. No audible rubs, murmurs, gallops. Lungs: Clear to auscultation. No wheezes, rales or rhonchi. Abdomen: Soft, nontender. No masses or organomegaly. Extremities: No cyanosis, clubbing or edema. He does have some baseline tremors in his upper extremities. He does have a flat affect. LABORATORY DATA: His lab work shows hemoglobin 12.8, hematocrit 37, white cell count 6.6, platelet count 235, sodium 138, potassium 3.7, BUN of 11, creatinine 0.87 and glucose 193, hemoglobin A1c 7.5, troponin of 1.46, vitamin B12 is 396. INR 1.0. Toxicology screen showed positive for benzodiazepines. Urinalysis unremarkable. IMAGING STUDIES: He underwent an MRI of the brain which did show some age appropriate atrophy. Head CT scan was unremarkable. Chest x-ray, unremarkable. He has had evaluation by occupational therapy which did show some relatively fair rehab potential, however, the patient is very impulsive. They are recommending supervision for safety. Physical therapy is recommending close supervision due to high risk falls and lacks safety awareness. IMPRESSION: This is a 76 year-old male with frequent falls, incidentally was found to have elevated troponin, underwent cardiac catheterization showing multivessel disease. Dr. Babb spoke in depth with the power of bankruptcy attorney, Chrissy Be, and also is in agreement that the patient is high-risk for surgery due to his multiple falls, his tremors, his baseline. RECOMMENDATIONS: At this time, nonsurgical and for maximizing medical therapy. Dictated by: JAC Miller Milo CARRASCO /5:41 PM /8:00 AM
[2017-01-21] MEDS: ASPIRIN EC 81 MG TABEC PO SCH (08:40)
[2017-01-21] MEDS: INSULIN ASPART SUPPLEMENTAL SCALE SQ SCH ×4 (08:40→20:40)
[2017-01-21] MEDS: ENALAPRIL MALEATE 10 MG TAB PO SCH (08:41)
[2017-01-21] MEDS: ALPRAZolam 0.25 MG TAB PO SCH ×2 (08:41→20:40)
[2017-01-21] MEDS: PANTOPRAZOLE SOD 20 MG DELAYED RELEASE TAB PO SCH (08:41)
[2017-01-21] MEDS: METOPROLOL TARTRATE 25 MG TAB PO SCH ×2 (08:41→20:40)
[2017-01-21] MEDS: SODIUM CHLORIDE 0.9% FLUSH 10 ML FLUSH IV FLUSH SCH ×2 (08:41→20:40)
[2017-01-21] MEDS ORDERED: amLODIPine BESYLATE 5 MG TAB PO SCH (09:00)
[2017-01-21] MEDS: GABAPENTIN 100 MG CAP PO SCH ×2 (09:00→20:39)
[2017-01-21] MEDS ORDERED: IOHEXOL 350 MG/ML 100 ML BTL (for Cath Lab) OTHER ONE (09:37)
[2017-01-21] MEDS: hydrALAZINE HCL 25 MG TAB PO PRN (11:55)
--- NOTE | 2017-01-21 12:21 | HHI.PR ---
Subjective Remarks Follow-up non-ST elevation [place]/hematemesis and now multivessel CAD 01/20/17-patient seen and examined, he started post left heart catheterization with finding of multivessel disease. Case discussed with cardiology. 01/21/17-patient seen and examined, currently denies any significant chest pain or shortness of breath. Seen by CTS however patient is not a surgical candidate and recommended medical management. Patient was up and ambulated with assistance of PT Objective Vitals Vital Signs Date Time Temp Pulse Resp B/P (MAP) Pulse Ox O2 Delivery O2 Flow Rate FiO2 01/21/17 11:49 97.9 01/21/17 11:47 59 18 178/93 (121) 97 01/21/17 07:50 98.3 64 19 174/81 (112) 95 01/21/17 06:00 60 01/21/17 05:00 60 01/21/17 04:00 56 01/21/17 03:00 54 01/21/17 03:00 97.5 60 16 150/83 (105) 97 01/21/17 02:00 54 01/21/17 01:00 54 01/21/17 00:00 97.7 59 20 145/79 (101) 95 01/21/17 00:00 60 01/20/17 23:00 62 01/20/17 22:00 72 01/20/17 21:00 74 01/20/17 20:00 63 01/20/17 19:00 64 01/20/17 19:00 98.7 64 18 161/81 (107) 96 01/20/17 18:00 62 01/20/17 17:00 78 01/20/17 16:00 60 01/20/17 15:32 65 01/20/17 15:00 98.2 61 18 175/92 (119) 98 01/20/17 14:00 60 01/20/17 12:30 98.6 60 18 169/82 (111) 98 I/O 01/20/17 01/20/17 01/20/17 01/21/17 01/21/17 01/21/17 07:00 15:00 23:00 07:00 15:00 23:00 Intake Total 1550 ml 240 ml Output Total 720 ml 200 ml Balance 830 ml 40 ml Intake Oral 480 ml 240 ml IV Total 1070 ml Output Urine Total 720 ml 200 ml # Bowel Movements 1 0 Result Diagram: 01/21/17 0532 01/21/17 0532 Imaging Last Impressions Brain MRI 01/17/17 0000 Signed Impressions: Service Date/Time: Tuesday, January 17, 2017 14:42 - CONCLUSION: Age-appropriate atrophy. Otherwise negative MRI brain with and without contrast. Jose Maria Colunga MD Head CT 01/16/17 2150 Signed Impressions: Service Date/Time: Monday, January 16, 2017 22:15 - CONCLUSION: Age-appropriate atrophy. No acute findings. Jose Maria oClunga MD Pelvis X-Ray 01/16/17 0000 Signed Impressions: Service Date/Time: Tuesday, January 17, 2017 10:08 - CONCLUSION: No fracture seen. Jose Maria Colunga MD Chest X-Ray 01/16/17 0000 Signed Impressions: Service Date/Time: Tuesday, January 17, 2017 11:15 - CONCLUSION: No acute disease. Jesús Davies MD Objective Remarks GENERAL: NAD SKIN: Warm and dry. HEAD: Normocephalic. EYES: No scleral icterus. No injection or drainage. NECK: Supple, trachea midline. No JVD or lymphadenopathy. CARDIOVASCULAR: Regular rate and rhythm without murmurs, gallops, or rubs. RESPIRATORY: Breath sounds equal bilaterally. No accessory muscle use. GASTROINTESTINAL: Abdomen soft, non-tender, nondistended. MUSCULOSKELETAL: No cyanosis, or edema. BACK: Nontender without obvious deformity. No CVA tenderness. Procedures none A/P Problem List: (1) Multi-vessel coronary artery stenosis ICD Code: I25.10 - Atherosclerotic heart disease of [place] coronary artery without angina pectoris (2) NSTEMI (non-ST elevated myocardial infarction) ICD Code: I21.4 - Non-ST elevation (NSTEMI) myocardial infarction Status: Acute (3) Falls ICD Code: W19.XXXA - Unspecified fall, initial encounter Status: Acute Assessment and Plan 76-year-old man with Multivessel coronary artery stenosis Status post left heart catheterization 01/20/17 CTS input appreciated however recommended nonsurgical management Awaiting for cardiology recommendations at this point Currently on beta brad/aspirin/Lipitor Heparin drip on hold d/t GI bleed Non-ST elevation OK Status post left heart catheterization 01/20/17 Management per cardiology Continue with aspirin/Lipitor/brad Heparin drip was on hold d/t GI bleed 2-D echo with EF 50-55% Hematemesis Status post EGD with finding of duodenitis and gastritis Continue with PPI Appreciate input from GI Falls Fall precautions PT/OT to treat and eval Diabetes DM2 A1c 7.5 Currently on sliding scale insulin Start metformin 500 mg daily Hypertension BP labile Increase Norvasc to 10 mg daily, continue on her oral antihypertensive medications Hydralazine when necessary Anxiety Continue Xanax DVT prophylaxis SCDs, heparin on hold out of concern for bleed Problem Qualifiers (1) Falls: Qualified Codes: W19.XXXA - Unspecified fall, initial encounter Oscar Desai MD Jan 21, 2017 12:21
--- NOTE | 2017-01-21 12:25 | HHI.FF ---
Face to Face Verification Diagnosis: (1) NSTEMI (non-ST elevated myocardial infarction) (2) Multi-vessel coronary artery stenosis (3) HTN (hypertension) (4) Tremor (5) Falls Physical Therapy Order: Evaluate and Treat Home Health Nursing Order: Signs/symptoms of disease process I have seen patient Tanner Dash on 01/21/17. My clinical findings support the need for the requested home health care services because: Patient has SOB Deconditioned w/ increased weakness High risk of falls I certify that my clinical findings support that this patient is homebound because: Unsteady gait/balance Poor cardiac reserve Oscar Desai MD Jan 21, 2017 12:25
--- NOTE | 2017-01-21 14:01 | HHI.DS ---
Discharge Summary Admission Date Jan 16, 2017 at 22:59 Discharge Date: Jan 21, 2017 Admitting Diagnosis Tn 1.5; Falls; AMS (1) Multi-vessel coronary artery stenosis ICD Code: I25.10 - Atherosclerotic heart disease of [place] coronary artery without angina pectoris (2) NSTEMI (non-ST elevated myocardial infarction) ICD Code: I21.4 - Non-ST elevation (NSTEMI) myocardial infarction Status: Acute (3) Falls ICD Code: W19.XXXA - Unspecified fall, initial encounter Status: Acute Procedures none Brief History - From Admission Mr. Dash is 76 yo, with history of anxiety, GERD, tremors, hypertension, and diabetes. Pt stated having difficulty walking for "over the past two weeks." He stated he has been "staggering" and "I can't walk a straight line." He noted over the past three days having fallen 4 times with at least one head strike. None of these falls resulted in loss of consciousness, blurred vision, or headache. He did report a fall that was a left sided head strike did result in him developing "some nausea." He stated he became concerned about his falling and called 911 and was taken to [facility]. Testing indicated the presence of elevated troponin and he was subsequently transferred [place] [facility] [place] of 01/17/17 for further evaluation and management. Mr. Dash denied chest pain, shortness of breath, nausea, vomiting, sweating , or other discomfort. Per RN, she stated pt's niece had reported pt was "not himself". Pt noted he has been taking Ativan and RN stated it had recently "been stopped." His tox screen was positive for benzodiazepines. CBC/BMP: 01/21/17 0532 01/21/17 0532 Significant Findings Laboratory Tests Test 01/19/17 05:01 01/20/17 05:55 01/21/17 05:32 Red Blood Count 4.43 MIL/MM3 (4.50-5.90) Hemoglobin 12.8 GM/DL (13.0-17.0) Hematocrit 37.9 % (39.0-51.0) Activated Partial Thromboplast Time 33.1 SEC (24.3-30.1) 32.4 SEC (24.3-30.1) Monocytes (%) (Auto) 9.1 % (0.0-8.0) Random Glucose 200 MG/DL (74-106) Calcium Level 8.4 MG/DL (8.5-10.1) Estimat Glomerular Filtration Rate 68 ML/MIN (>89) Imaging Last Impressions Brain MRI 01/17/17 0000 Signed Impressions: Service Date/Time: Tuesday, January 17, 2017 14:42 - CONCLUSION: Age-appropriate atrophy. Otherwise negative MRI brain with and without contrast. Jose Maria Colunga MD Head CT 01/16/170 Signed Impressions: Service Date/Time: Monday, January 16, 2017 22:15 - CONCLUSION: Age-appropriate atrophy. No acute findings. Jose Maria Colunga MD Pelvis X-Ray 01/16/17 0000 Signed Impressions: Service Date/Time: Monday, January 16, 2017 22:15 - CONCLUSION: No fracture seen. Jose Maria Colunga MD Chest X-Ray 01/16/17 0000 Signed Impressions: Service Date/Time: Tuesday, January 17, 2017 11:15 - CONCLUSION: No acute disease. Jesús Davies MD PE at Discharge GENERAL: NAD SKIN: Warm and dry. HEAD: Normocephalic. EYES: No scleral icterus. No injection or drainage. NECK: Supple, trachea midline. No JVD or lymphadenopathy. CARDIOVASCULAR: Regular rate and rhythm without murmurs, gallops, or rubs. RESPIRATORY: Breath sounds equal bilaterally. No accessory muscle use. GASTROINTESTINAL: Abdomen soft, non-tender, nondistended. MUSCULOSKELETAL: No cyanosis, or edema. BACK: Nontender without obvious deformity. No CVA tenderness. Hospital Course Patient admitted secondary to chest pain was found to be in non-ST elevation [place] for which cardiology was consulted and patient placed on heparin drip. He underwent left heart catheterization with finding of multivessel disease, for which cardiothoracic surgery was consulted however it was recommended nonoperative management and continue medical treatment. During his hospitalization, patient had episode of hematemesis for which gastroenterology was consulted and EGD was performed. DVT and GI prophylaxis were provided. Physical therapy was consulted. Prior to discharge, patient's conditions improvement vital remained stable. Pt Condition on Discharge: Fair Discharge Disposition: Disch w/ Home Health Serv Discharge Time: > 30 minutes Discharge Instructions DIET: Follow Instructions for: Heart Healthy Diet Activities you can perform: Regular-No Restrictions Oscar Desai MD Jan 21, 2017 14:01
--- NOTE | 2017-01-21 14:29 | HHI.GIFU ---
Subjective Remarks Resting in the bed Patient denies any acute abdominal pain, nausea or vomiting, no constipation no diarrhea, no active bleeding Afebrile BM 1 today normal consistency (Dacia Durham) Objective Vitals I&O Vital Signs Date Time Temp Pulse Resp B/P (MAP) Pulse Ox O2 Delivery O2 Flow Rate FiO2 01/21/17 14:01 68 01/21/17 13:00 68 01/21/17 12:00 62 01/21/17 11:49 97.9 01/21/17 11:47 59 18 178/93 (121) 97 01/21/17 11:00 59 01/21/17 10:00 66 01/21/17 09:00 74 01/21/17 08:00 64 01/21/17 07:50 98.3 64 19 174/81 (112) 95 01/21/17 07:00 60 01/21/17 06:00 60 01/21/17 05:00 60 01/21/17 04:00 56 01/21/17 03:00 54 01/21/17 03:00 97.5 60 16 150/83 (105) 97 01/21/17 02:00 54 01/21/17 01:00 54 01/21/17 00:00 97.7 59 20 145/79 (101) 95 01/21/17 00:00 60 01/20/17 23:00 62 01/20/17 22:00 72 01/20/17 21:00 74 01/20/17 20:00 63 01/20/17 19:00 64 01/20/17 19:00 98.7 64 18 161/81 (107) 96 01/20/17 18:00 62 01/20/17 17:00 78 01/20/17 16:00 60 01/20/17 15:32 65 01/20/17 15:00 98.2 61 18 175/92 (119) 98 I/O 01/20/17 01/20/17 01/20/17 01/21/17 01/21/17 01/21/17 07:00 15:00 23:00 07:00 15:00 23:00 Intake Total 1550 ml 240 ml Output Total 720 ml 200 ml Balance 830 ml 40 ml Intake Oral 480 ml 240 ml IV Total 1070 ml Output Urine Total 720 ml 200 ml # Bowel Movements 1 0 Laboratory Laboratory Tests Test 01/21/17 05:32 White Blood Count 7.4 Red Blood Count 4.54 Hemoglobin 13.1 Hematocrit 39.2 Mean Corpuscular Volume 86.3 Mean Corpuscular Hemoglobin 28.7 Mean Corpuscular Hemoglobin Concent 33.3 Red Cell Distribution Width 14.3 Platelet Count 255 Mean Platelet Volume 7.8 Neutrophils (%) (Auto) 69.3 Lymphocytes (%) (Auto) 20.0 Monocytes (%) (Auto) 9.1 Eosinophils (%) (Auto) 1.4 Basophils (%) (Auto) 0.2 Neutrophils # (Auto) 5.1 Lymphocytes # (Auto) 1.5 Monocytes # (Auto) 0.7 Eosinophils # (Auto) 0.1 Basophils # (Auto) 0.0 CBC Comment DIFF FINAL Differential Comment Blood Urea Nitrogen 11 Creatinine 1.06 Random Glucose 200 Calcium Level 8.4 Sodium Level 138 Potassium Level 3.6 Chloride Level 103 Carbon Dioxide Level 28.5 Anion Gap 7 Estimat Glomerular Filtration Rate 68 Date/Time Source Procedure Growth Status 01/17/17 20:25 Stool Stool Stool Occult Blood (LIZETH) - Final HEMOCCULT NEGATIVE Complete Imaging Last Impressions Brain MRI 01/17/17 0000 Signed Impressions: Service Date/Time: Tuesday, January 17, 2017 14:42 - CONCLUSION: Age-appropriate atrophy. Otherwise negative MRI brain with and without contrast. Jose Maria Colunga MD Head CT 01/16/17 2150 Signed Impressions: Service Date/Time: Monday, January 16, 2017 22:15 - CONCLUSION: Age-appropriate atrophy. No acute findings. Jose Maria Colunga MD Pelvis X-Ray 01/16/17 0000 Signed Impressions: Service Date/Time: Monday, January 16, 2017 22:15 - CONCLUSION: No fracture seen. Jose Maria Colunga MD Chest X-Ray 01/16/17 0000 Signed Impressions: Service Date/Time: Tuesday, January 17, 2017 11:15 - CONCLUSION: No acute disease. Jesús Davies MD Physical Exam HEENT: Pupils round and reactive to light; normocephalic; atraumatic; no jaundice. Throat is clear. NECK: Neck is supple, no JVD, no lymphadenopathy. CHEST: Chest is clear to auscultation and percussion. CARDIAC: Regular rate and rhythm, denies any chest pain. ABDOMEN: Soft, nondistended, nontender; no hepatosplenomegaly; bowel sounds are present in all four quadrants. EXTREMITIES: No clubbing, cyanosis, or edema. SKIN: Normal; no rash; no jaundice. WIND ENERGY ENGINEER: No focal deficits; alert and oriented times three. (Dacia Durham) Assessment and Plan Plan ASSESSMENT: Hemoptysis; Coffee ground emesis, Patient reports ongoing nausea and vomiting at home, but has not noted any blood in emesis or stool. Denies darks stools. Does have GERD and takes Omeprazole 20 mg daily. Denies any alcohol abuse. EGD performed 01/19, There were no complications. Duodenitis second portion-biopsy performed gastritis antrum-biopsy performed Schatzki's ring -biopsy performed Hiatal henia-3 cm Non-STEMI, cardiac catheter was performed on 01/20/17 PLAN: - Antireflux regimen with PPI - Monitor HH, stable at 13.1 on 01/21/17 - Notify GI of active bleeding, patient will need EGD follow-up in 3 years, esophageal dilatations as needed - Biopsy results in 7-10 days. Patient will be notified per office, if needed patient can call the office if our call his missed. - Supportive care - Further recommendations to follow based on results of above Patient seen and examined by Dr. Garcia and myself and this note is written on his behalf. (Dacia Durham) Dacia Durham Jan 21, 2017 14:29 Shira Garcia MD Jan 21, 2017 20:04
[2017-01-21] MEDS: ENALAPRILAT 2.5 MG/2 ML VIAL IV PUSH PRN (16:12)
--- NOTE | 2017-01-21 18:47 | PD.CARD.PN ---
Subjective Subjective Remarks Overall appears to be doing well Up at the side of the bed Objective Medications Current Medications Medications (Trade) Dose Ordered Sig/[place] Route Start Time Stop Time Status Last Admin (NS Flush) 2 ml UNSCH PRN IV FLUSH 01/16/17 23:15 (NS Flush) 2 ml BID IV FLUSH 01/17/17 09:00 01/21/17 08:41 (Zofran Inj) 4 mg Q6H PRN IVP 01/16/17 23:15 01/18/17 13:54 (Tylenol) 650 mg Q6H PRN PO 01/16/17 23:15 01/18/17 01:57 ([place] 5-325 Mg) 1 tab Q4H PRN PO 01/16/17 23:15 01/20/17 17:41 (Morphine Inj) 1 mg Q3H PRN IV PUSH 01/16/17 23:15 (Milk Of Magnesia Liq) 30 ml Q12H PRN PO 01/16/17 23:15 (Ecotrin Ec) 81 mg DAILY PO 01/17/17 09:00 01/21/17 08:40 (Lopressor) 25 mg Q12HR PO 01/17/17 09:00 01/21/17 08:41 (D50w (Vial) Inj) 50 ml UNSCH PRN IV PUSH 01/17/17 03:45 (Glucagon Inj) 1 mg UNSCH PRN OTHER 01/17/17 03:45 (NovoLOG SUPPLEMENTAL SCALE) 1 ACHS SLIDING SCALE SQ 01/17/17 08:00 01/21/17 17:06 (Vasotec) 20 mg DAILY PO 01/18/17 10:45 01/21/17 08:41 (Protonix) 20 mg DAILY PO 01/18/17 11:00 01/21/17 08:41 (Librium) 5 mg TID PO 01/18/17 14:45 Future Hold 01/20/17 08:30 (Xanax) 0.25 mg Q12HR PO 01/18/17 14:45 01/21/17 08:41 (Neurontin) 100 mg BID PO 01/18/17 14:45 01/20/17 21:14 (Phenergan Inj) 12.5 mg Q6H PRN IM 01/18/17 16:30 (Lipitor) 40 mg HS PO 01/18/17 21:00 01/20/17 21:14 (Apresoline) 25 mg Q8HR PRN PO 01/20/17 14:30 01/21/17 11:55 (Vasotec Inj) 2.5 mg Q6H PRN IV PUSH 01/20/17 14:30 01/21/17 16:12 (Glucophage) 500 mg DAILY PO 01/22/17 09:00 (Norvasc) 10 mg DAILY PO 01/22/17 09:00 Vital Signs / I&O Vital Signs Date Time Temp Pulse Resp B/P (MAP) Pulse Ox O2 Delivery O2 Flow Rate FiO2 01/21/17 18:20 68 01/21/17 17:02 64 01/21/17 16:48 169/95 (119) 01/21/17 16:00 60 01/21/17 16:00 98.4 65 19 183/80 (114) 96 01/21/17 15:00 66 01/21/17 14:01 68 01/21/17 13:00 68 01/21/17 12:00 62 01/21/17 11:49 97.9 01/21/17 11:47 59 18 178/93 (121) 97 01/21/17 11:00 59 01/21/17 10:00 66 01/21/17 09:00 74 01/21/17 08:00 64 01/21/17 07:50 98.3 64 19 174/81 (112) 95 01/21/17 07:00 60 01/21/17 06:00 60 01/21/17 05:00 60 01/21/17 04:00 56 01/21/17 03:00 54 01/21/17 03:00 97.5 60 16 150/83 (105) 97 01/21/17 02:00 54 01/21/17 01:00 54 01/21/17 00:00 97.7 59 20 145/79 (101) 95 01/21/17 00:00 60 01/20/17 23:00 62 01/20/17 22:00 72 01/20/17 21:00 74 01/20/17 20:00 63 01/20/17 19:00 64 01/20/17 19:00 98.7 64 18 161/81 (107) 96 I/O 01/20/17 01/20/17 01/20/17 01/21/17 01/21/17 01/21/17 07:00 15:00 23:00 07:00 15:00 23:00 Intake Total 1550 ml 240 ml 840 ml Output Total 720 ml 200 ml 850 ml Balance 830 ml 40 ml -10 ml Intake Oral 480 ml 240 ml 840 ml IV Total 1070 ml Output Urine Total 720 ml 200 ml 850 ml # Bowel Movements 1 0 Physical Exam GENERAL: NAD, alert and awake SKIN: Warm and dry. HEAD: Atraumatic. Normocephalic. EYES: Pupils equal and round. No scleral icterus. No injection or drainage. ENT: No nasal bleeding or discharge. Mucous membranes pink and moist. NECK: Trachea midline. No JVD. CARDIOVASCULAR: Regular rate and rhythm. RESPIRATORY: No accessory muscle use. Clear to auscultation. Breath sounds equal bilaterally. GASTROINTESTINAL: Abdomen soft, non-tender, nondistended. Hepatic and splenic margins not palpable. MUSCULOSKELETAL: Extremities without clubbing, cyanosis, or edema. No obvious deformities. Right groin no hematoma/bruit, distal pulses intact NEUROLOGICAL: Awake and alert. No obvious cranial nerve deficits. Motor grossly within normal limits. Baseline tremor PSYCHIATRIC: Appropriate mood and affect; insight and judgment normal. Laboratory Laboratory Tests Test 01/21/17 05:32 White Blood Count 7.4 TH/MM3 Red Blood Count 4.54 MIL/MM3 Hemoglobin 13.1 GM/DL Hematocrit 39.2 % Mean Corpuscular Volume 86.3 FL Mean Corpuscular Hemoglobin 28.7 PG Mean Corpuscular Hemoglobin Concent 33.3 % Red Cell Distribution Width 14.3 % Platelet Count 255 TH/MM3 Mean Platelet Volume 7.8 FL Neutrophils (%) (Auto) 69.3 % Lymphocytes (%) (Auto) 20.0 % Monocytes (%) (Auto) 9.1 % Eosinophils (%) (Auto) 1.4 % Basophils (%) (Auto) 0.2 % Neutrophils # (Auto) 5.1 TH/MM3 Lymphocytes # (Auto) 1.5 TH/MM3 Monocytes # (Auto) 0.7 TH/MM3 Eosinophils # (Auto) 0.1 TH/MM3 Basophils # (Auto) 0.0 TH/MM3 CBC Comment DIFF FINAL Differential Comment Blood Urea Nitrogen 11 MG/DL Creatinine 1.06 MG/DL Random Glucose 200 MG/DL Calcium Level 8.4 MG/DL Sodium Level 138 MEQ/L Potassium Level 3.6 MEQ/L Chloride Level 103 MEQ/L Carbon Dioxide Level 28.5 MEQ/L Anion Gap 7 MEQ/L Estimat Glomerular Filtration Rate 68 ML/MIN Assessment and Plan Problem List: (1) HTN (hypertension) ICD Codes: I10 - Essential (primary) hypertension (2) Tremor ICD Codes: R25.1 - Tremor, unspecified (3) NSTEMI (non-ST elevated myocardial infarction) ICD Codes: I21.4 - Non-ST elevation (NSTEMI) myocardial infarction Status: Acute (4) Falls ICD Codes: W19.XXXA - Unspecified fall, initial encounter Status: Acute Assessment and Plan 1) MRI negative for CVA 2) NSTEMI MVCAD CT surgery evaluation, too high risk of CABG Overall patient appears asymptomatic, discussed with niece (POA) and patient will plan on medical management for now 3) Concern with multiple falls Although believed to be not only his gate but moving around the house Discussed with the patient and his niece (POA) about concern with placing on DAPT if PCI 4) Accelerated HTN Agree with increasing Norvasc to 10mg Not ready for discharge due to accelerated HTN Problem Qualifiers (1) Falls: Qualified Codes: W19.XXXA - Unspecified fall, initial encounter Derrick Batista DO Jan 21, 2017 18:47
[2017-01-21] MEDS: ATORVASTATIN 40 MG TAB PO SCH (20:40)
[2017-01-22] VITALS (26 sets, daily range): BP systolic 146–177; BP diastolic 77–89; PULSE 52–71; RESP 17–19; TEMP 98.3–98.7; O2SAT 97–98
[2017-01-22] MEDS: INSULIN ASPART SUPPLEMENTAL SCALE SQ SCH ×4 (07:48→20:51)
[2017-01-22 08:31] LABS: HEMATOCRIT 39.6 % (39.0-51.0); MEAN CELL VOLUME 85.3 FL (80.0-100.0); MEAN CORPUSCULAR HEMOGLOBIN 28.4 PG (27.0-34.0); MEAN CORPUSCULAR HGB CONC 33.3 % (32.0-36.0); PLATELET COUNT 273 TH/MM3 (150-450); RED BLOOD COUNT 4.64 MIL/MM3 (4.50-5.90); RED CELL DISTRIBUTION WIDTH 14.2 % (11.6-17.2); REVIEW FLAG FINAL
[2017-01-22] MEDS: SODIUM CHLORIDE 0.9% FLUSH 10 ML FLUSH IV FLUSH SCH ×2 (09:00→20:53)
[2017-01-22] MEDS: ASPIRIN EC 81 MG TABEC PO SCH (09:27)
[2017-01-22] MEDS: GABAPENTIN 100 MG CAP PO SCH ×2 (09:28→20:41)
[2017-01-22] MEDS: metFORMIN HCL 500 MG TAB PO SCH (09:28)
[2017-01-22] MEDS: METOPROLOL TARTRATE 25 MG TAB PO SCH ×2 (09:28→20:41)
[2017-01-22] MEDS: ALPRAZolam 0.25 MG TAB PO SCH ×2 (09:29→20:41)
[2017-01-22] MEDS: ENALAPRIL MALEATE 10 MG TAB PO SCH (09:29)
[2017-01-22] MEDS: PANTOPRAZOLE SOD 20 MG DELAYED RELEASE TAB PO SCH (09:29)
[2017-01-22] MEDS ORDERED: ALPR.25 PO (10:08)
[2017-01-22] MEDS ORDERED: METO25TA3 PO (10:08)
[2017-01-22] MEDS ORDERED: ATOR40TA16 PO (10:08)
[2017-01-22] MEDS ORDERED: AMLO10 PO (10:08)
[2017-01-22] MEDS ORDERED: HYDR-3516 PO (10:08)
[2017-01-22] MEDS ORDERED: METF500 PO (10:08)
[2017-01-22] MEDS ORDERED: ECASA81 PO (10:08)
--- NOTE | 2017-01-22 10:11 | HHI.PR ---
Subjective Remarks Follow-up non-ST elevation [place]/hematemesis and now multivessel CAD 01/20/17-patient seen and examined, he started post left heart catheterization with finding of multivessel disease. Case discussed with cardiology. 01/21/17-patient seen and examined, currently denies any significant chest pain or shortness of breath. Seen by CTS however patient is not a surgical candidate and recommended medical management. Patient was up and ambulated with assistance of PT 01/22/17-patient seen and examined, no chest pain or shortness of breath, BP in acceptable range. Family would like patient to be discharged to [facility] Objective Vitals Vital Signs Date Time Temp Pulse Resp B/P (MAP) Pulse Ox O2 Delivery O2 Flow Rate FiO2 01/22/17 09:31 155/81 (105) 01/22/17 07:29 98.3 67 17 161/89 (113) 97 01/22/17 07:00 64 01/22/17 06:22 66 01/22/17 05:18 70 01/22/17 04:38 57 01/22/17 03:15 52 01/22/17 03:00 98.7 62 153/77 (102) 98 01/22/17 02:00 58 01/22/17 01:23 58 01/22/17 00:00 64 01/21/17 23:00 80 01/21/17 23:00 98.5 65 157/84 (108) 65 01/21/17 22:00 82 01/21/17 21:00 62 01/21/17 20:00 74 01/21/17 20:00 98.7 64 158/82 (107) 96 01/21/17 19:00 68 01/21/17 18:20 68 01/21/17 17:02 64 01/21/17 16:48 169/95 (119) 01/21/17 16:00 60 01/21/17 16:00 98.4 65 19 183/80 (114) 96 01/21/17 15:00 66 01/21/17 14:01 68 01/21/17 13:00 68 01/21/17 12:00 62 01/21/17 11:49 97.9 01/21/17 11:47 59 18 178/93 (121) 97 01/21/17 11:00 59 I/O 01/21/17 01/21/17 01/21/17 01/22/17 01/22/17 01/22/17 07:00 15:00 23:00 07:00 15:00 23:00 Intake Total 240 ml 840 ml 240 ml Output Total 200 ml 850 ml 800 ml Balance 40 ml -10 ml -560 ml Intake Oral 240 ml 840 ml 240 ml Output Urine Total 200 ml 850 ml 800 ml Result Diagram: 01/22/17 0741 01/21/17 0532 Imaging Last Impressions Brain MRI 01/17/17 0000 Signed Impressions: Service Date/Time: Tuesday, January 17, 2017 14:42 - CONCLUSION: Age-appropriate atrophy. Otherwise negative MRI brain with and without contrast. Jose Maria Colunga MD Head CT 01/16/17 2150 Signed Impressions: Service Date/Time: Monday, January 16, 2017 22:15 - CONCLUSION: Age-appropriate atrophy. No acute findings. Jose Maria Colunga MD Pelvis X-Ray 01/16/17 0000 Signed Impressions: Service Date/Time: Monday, January 16, 2017 22:15 - CONCLUSION: No fracture seen. Jose Maria Colunga MD Chest X-Ray 01/16/17 0000 Signed Impressions: Service Date/Time: Tuesday, January 17, 2017 11:15 - CONCLUSION: No acute disease. Jesús Davies MD Objective Remarks GENERAL: NAD SKIN: Warm and dry. HEAD: Normocephalic. EYES: No scleral icterus. No injection or drainage. NECK: Supple, trachea midline. No JVD or lymphadenopathy. CARDIOVASCULAR: Regular rate and rhythm without murmurs, gallops, or rubs. RESPIRATORY: Breath sounds equal bilaterally. No accessory muscle use. GASTROINTESTINAL: Abdomen soft, non-tender, nondistended. MUSCULOSKELETAL: No cyanosis, or edema. BACK: Nontender without obvious deformity. No CVA tenderness. Procedures none A/P Problem List: (1) Multi-vessel coronary artery stenosis ICD Code: I25.10 - Atherosclerotic heart disease of [place] coronary artery without angina pectoris (2) NSTEMI (non-ST elevated myocardial infarction) ICD Code: I21.4 - Non-ST elevation (NSTEMI) myocardial infarction Status: Acute (3) Falls ICD Code: W19.XXXA - Unspecified fall, initial encounter Status: Acute Assessment and Plan 76-year-old man with Multivessel coronary artery stenosis Status post left heart catheterization 01/20/17 CTS input appreciated however recommended nonsurgical management Currently on beta brad/aspirin/Lipitor Heparin drip on hold d/t GI bleed Non-ST elevation [place] Status post left heart catheterization 01/20/17 Management per cardiology Continue with aspirin/Lipitor/brad Heparin drip was on hold d/t GI bleed 2-D echo with EF 50-55% Hematemesis Status post EGD with finding of duodenitis and gastritis Continue with PPI Appreciate input from GI Falls Fall precautions PT/OT to treat and eval Diabetes DM2 A1c 7.5 Currently on sliding scale insulin Start metformin 500 mg daily Hypertension BP labile Continue Norvasc 10 mg daily, Vasotec 20 mg daily, Lopressor 25 mg twice a day every 12 hours Hydralazine when necessary Anxiety Continue Xanax DVT prophylaxis SCDs, heparin on hold out of concern for bleed Problem Qualifiers (1) Falls: Qualified Codes: W19.XXXA - Unspecified fall, initial encounter Oscar Desai MD Jan 22, 2017 10:11
[2017-01-22] MEDS: hydrALAZINE HCL 25 MG TAB PO PRN (12:31)
[2017-01-22] MEDS: ATORVASTATIN 40 MG TAB PO SCH (20:41)
--- NOTE | 2017-01-22 21:09 | PD.CARD.PN ---
Subjective Subjective Remarks Overall appears to be doing well Up in the chair Blood pressure better controlled Objective Medications Current Medications Medications (Trade) Dose Ordered Sig/[place] Route Start Time Stop Time Status Last Admin (NS Flush) 2 ml UNSCH PRN IV FLUSH 01/16/17 23:15 (NS Flush) 2 ml BID IV FLUSH 01/17/17 09:00 01/22/17 20:53 (Zofran Inj) 4 mg Q6H PRN IVP 01/16/17 23:15 01/18/17 13:54 (Tylenol) 650 mg Q6H PRN PO 01/16/17 23:15 01/18/17 01:57 ([place] 5-325 Mg) 1 tab Q4H PRN PO 01/16/17 23:15 01/20/17 17:41 (Morphine Inj) 1 mg Q3H PRN IV PUSH 01/16/17 23:15 (Milk Of Magnesia Liq) 30 ml Q12H PRN PO 01/16/17 23:15 (Ecotrin Ec) 81 mg DAILY PO 01/17/17 09:00 01/22/17 09:27 (Lopressor) 25 mg Q12HR PO 01/17/17 09:00 01/22/17 20:41 (D50w (Vial) Inj) 50 ml UNSCH PRN IV PUSH 01/17/17 03:45 (Glucagon Inj) 1 mg UNSCH PRN OTHER 01/17/17 03:45 (NovoLOG SUPPLEMENTAL SCALE) 1 ACHS SLIDING SCALE SQ 01/17/17 08:00 01/22/17 20:51 (Vasotec) 20 mg DAILY PO 01/18/17 10:45 01/22/17 09:29 (Protonix) 20 mg DAILY PO 01/18/17 11:00 01/22/17 09:29 (Librium) 5 mg TID PO 01/18/17 14:45 Future Hold 01/20/17 08:30 (Xanax) 0.25 mg Q12HR PO 01/18/17 14:45 01/22/17 20:41 (Neurontin) 100 mg BID PO 01/18/17 14:45 01/22/17 20:41 (Phenergan Inj) 12.5 mg Q6H PRN IM 01/18/17 16:30 (Lipitor) 40 mg HS PO 01/18/17 21:00 01/22/17 20:41 (Apresoline) 25 mg Q8HR PRN PO 01/20/17 14:30 01/22/17 12:31 (Vasotec Inj) 2.5 mg Q6H PRN IV PUSH 01/20/17 14:30 01/21/17 16:12 (Glucophage) 500 mg DAILY PO 01/22/17 09:00 01/22/17 09:28 (Norvasc) 10 mg DAILY PO 01/22/17 09:00 01/22/17 09:28 Vital Signs / I&O Vital Signs Date Time Temp Pulse Resp B/P (MAP) Pulse Ox O2 Delivery O2 Flow Rate FiO2 01/22/17 18:32 66 01/22/17 17:00 70 01/22/17 16:00 68 01/22/17 15:00 59 01/22/17 15:00 98.6 70 18 146/85 (105) 97 01/22/17 14:00 66 01/22/17 13:56 149/82 (104) 01/22/17 13:00 60 01/22/17 12:30 173/88 (116) 01/22/17 12:00 62 01/22/17 11:30 98.7 64 19 177/88 (117) 98 01/22/17 11:00 71 01/22/17 10:00 60 01/22/17 09:31 155/81 (105) 01/22/17 09:00 66 01/22/17 08:00 70 01/22/17 07:29 98.3 67 17 161/89 (113) 97 01/22/17 07:00 64 01/22/17 06:22 66 01/22/17 05:18 70 01/22/17 04:38 57 01/22/17 03:15 52 01/22/17 03:00 98.7 62 153/77 (102) 98 01/22/17 02:00 58 01/22/17 01:23 58 01/22/17 00:00 64 01/21/17 23:00 80 01/21/17 23:00 98.5 65 157/84 (108) 65 01/21/17 22:00 82 I/O 11/29/17 1101/21/17 01/22/17 01/22/17 01/22/17 07:00 15:00 23:00 07:00 15:00 23:00 Intake Total 240 ml 840 ml 240 ml 600 ml Output Total 200 ml 850 ml 800 ml 800 ml Balance 40 ml -10 ml -560 ml -200 ml Intake Oral 240 ml 840 ml 240 ml 600 ml Output Urine Total 200 ml 850 ml 800 ml 800 ml # Bowel Movements 1 Physical Exam GENERAL: NAD, alert and awake SKIN: Warm and dry. HEAD: Atraumatic. Normocephalic. EYES: Pupils equal and round. No scleral icterus. No injection or drainage. ENT: No nasal bleeding or discharge. Mucous membranes pink and moist. NECK: Trachea midline. No JVD. CARDIOVASCULAR: Regular rate and rhythm. RESPIRATORY: No accessory muscle use. Clear to auscultation. Breath sounds equal bilaterally. GASTROINTESTINAL: Abdomen soft, non-tender, nondistended. Hepatic and splenic margins not palpable. MUSCULOSKELETAL: Extremities without clubbing, cyanosis, or edema. No obvious deformities. Right groin no hematoma/bruit, distal pulses intact NEUROLOGICAL: Awake and alert. No obvious cranial nerve deficits. Motor grossly within normal limits. Baseline tremor PSYCHIATRIC: Appropriate mood and affect; insight and judgment normal. Laboratory Laboratory Tests Test 01/22/17 07:41 White Blood Count 7.0 TH/MM3 Red Blood Count 4.64 MIL/MM3 Hemoglobin 13.2 GM/DL Hematocrit 39.6 % Mean Corpuscular Volume 85.3 FL Mean Corpuscular Hemoglobin 28.4 PG Mean Corpuscular Hemoglobin Concent 33.3 % Red Cell Distribution Width 14.2 % Platelet Count 273 TH/MM3 Mean Platelet Volume 8.2 FL Assessment and Plan Problem List: (1) HTN (hypertension) ICD Codes: I10 - Essential (primary) hypertension (2) Tremor ICD Codes: R25.1 - Tremor, unspecified (3) NSTEMI (non-ST elevated myocardial infarction) ICD Codes: I21.4 - Non-ST elevation (NSTEMI) myocardial infarction Status: Acute (4) Falls ICD Codes: W19.XXXA - Unspecified fall, initial encounter Status: Acute Assessment and Plan 1) MRI negative for CVA 2) NSTEMI MVCAD CT surgery evaluation, too high risk of CABG Overall patient appears asymptomatic, discussed with niece (POA) and patient will plan on medical management for now 3) Concern with multiple falls Although believed to be not only his gate but moving around the house Discussed with the patient and his niece (POA) about concern with placing on DAPT if PCI 4) Accelerated HTN Agree with increasing Norvasc to 10mg Blood pressure better controlled 5) Plan for SNF on discharge Problem Qualifiers (1) Falls: Qualified Codes: W19.XXXA - Unspecified fall, initial encounter Derrick Batista DO Jan 22, 2017 21:09
[2017-01-22] MEDS: ONDANSETRON HCL 4 MG/2 ML VIAL IVP PRN (21:46)
[2017-01-23] VITALS (7 sets, daily range): BP systolic 126–147; BP diastolic 64–88; PULSE 55–68; RESP 16–20; TEMP 98–99; O2SAT 95–98
[2017-01-23] MEDS: PANTOPRAZOLE SOD 20 MG DELAYED RELEASE TAB PO SCH (08:17)
[2017-01-23] MEDS: ENALAPRIL MALEATE 10 MG TAB PO SCH (08:17)
[2017-01-23] MEDS: ALPRAZolam 0.25 MG TAB PO SCH ×2 (08:17→20:12)
[2017-01-23] MEDS: GABAPENTIN 100 MG CAP PO SCH ×2 (08:18→20:13)
[2017-01-23] MEDS: METOPROLOL TARTRATE 25 MG TAB PO SCH ×2 (08:18→20:13)
[2017-01-23] MEDS: ASPIRIN EC 81 MG TABEC PO SCH (08:18)
[2017-01-23] MEDS: metFORMIN HCL 500 MG TAB PO SCH (08:18)
[2017-01-23] MEDS: SODIUM CHLORIDE 0.9% FLUSH 10 ML FLUSH IV FLUSH SCH ×2 (08:18→20:14)
[2017-01-23] MEDS: INSULIN ASPART SUPPLEMENTAL SCALE SQ SCH ×4 (08:19→20:14)
--- NOTE | 2017-01-23 11:40 | HHI.PR ---
Subjective Remarks Patient denies any chest pain or chest pressure or shortness of breath. PT evaluation pending today. Patient has been denied by his insurance company for going to [facility] facility as his gait has improved. I discussed with the patient and he states he would prefer to go home anyways. He states his nephew lives several blocks away. Case management discussed the alternative of discharge home with home health care with his niece who is agreeable. Objective Vitals Vital Signs Date Time Temp Pulse Resp B/P (MAP) Pulse Ox O2 Delivery O2 Flow Rate FiO2 01/23/17 08:00 55 01/23/17 08:00 99.0 55 20 145/88 (107) 95 01/23/17 04:00 98.0 62 19 126/64 (84) 98 01/23/17 04:00 60 01/23/17 00:00 98.0 64 16 147/65 (92) 98 01/23/17 00:00 60 01/22/17 20:00 62 01/22/17 20:00 98.7 69 18 151/88 (109) 97 01/22/17 18:32 66 01/22/17 17:00 70 01/22/17 16:00 68 01/22/17 15:00 59 01/22/17 15:00 98.6 70 18 146/85 (105) 97 01/22/17 14:00 66 01/22/17 13:56 149/82 (104) 01/22/17 13:00 60 01/22/17 12:30 173/88 (116) 01/22/17 12:00 62 I/O 01/22/17 01/22/17 01/22/17 01/23/17 01/23/17 01/23/17 06:59 14:59 22:59 06:59 14:59 22:59 Intake Total 240 ml 600 ml Output Total 800 ml 800 ml 250 ml Balance -560 ml -200 ml -250 ml Intake Oral 240 ml 600 ml Output Urine Total 800 ml 800 ml 250 ml # Bowel Movements 1 Result Diagram: 01/22/17 0741 01/21/17 0532 Objective Remarks GENERAL: A very pleasant well-developed well-nourished male in no significant distress. SKIN: Warm and dry. HEAD: Normocephalic. EYES: No scleral icterus. No injection or drainage. NECK: Supple, trachea midline. No JVD or lymphadenopathy. CARDIOVASCULAR: Regular rate and rhythm without murmurs, gallops, or rubs. RESPIRATORY: Breath sounds equal bilaterally. No accessory muscle use. GASTROINTESTINAL: Abdomen soft, non-tender, nondistended. EXTREMITIES: No cyanosis, or edema. NEUROLOGICAL: Awake, alert, and oriented x 3. He does have tremors of the bilateral upper extremities. Procedures none A/P Problem List: (1) Multi-vessel coronary artery stenosis ICD Code: I25.10 - Atherosclerotic heart disease of [place] coronary artery without angina pectoris (2) NSTEMI (non-ST elevated myocardial infarction) ICD Code: I21.4 - Non-ST elevation (NSTEMI) myocardial infarction Status: Acute (3) Falls ICD Code: W19.XXXA - Unspecified fall, initial encounter Status: Acute (4) Ischemic dilated cardiomyopathy ICD Code: I25.5 - Ischemic cardiomyopathy; I42.0 - Dilated cardiomyopathy (5) Cerebellar atrophy ICD Code: G31.9 - Degenerative disease of nervous system, unspecified (6) Tremor ICD Code: R25.1 - Tremor, unspecified (7) HTN (hypertension) ICD Code: I10 - Essential (primary) hypertension (8) Gastritis and duodenitis ICD Code: K29.90 - Gastroduodenitis, unspecified, without bleeding Assessment and Plan 76-year-old man who presented to the ER on 01/16 complaining of gait instability and frequent falls, was found to have non-ST elevated myocardial infarction NSTEMI, Multivessel coronary artery stenosis Status post left heart catheterization 01/20/17 showing diffuse disease of the LAD with stenosis of 80-90%, 99% subtotal occlusion of the PDA 2-D echo with EF 50-55% CTS input appreciated however recommended nonsurgical management after discussion with the patient's power of caterer's aide/niece Chrissy Be Continue beta brad/aspirin/Lipitor Hematemesis H&H has been stable Status post EGD with finding of duodenitis and gastritis Continue with PPI Appreciate input from GI Falls, tremor, followed by Dr. Hooper neurology's outpatient patient has cerebellar atrophy and possible Parkinson's disease Gait is improving however patient is at times impulsive Fall precautions PT/OT to treat and eval Patient's insurance is declining [facility] facility stay discussed with patient and his niece who are agreeable to him going home with home health care Diabetes DM2 A1c 7.5 Currently on sliding scale insulin Started on metformin 500 mg daily Hypertension BP labile - improved today Continue Norvasc 10 mg daily, Vasotec 20 mg daily, Lopressor 25 mg twice a day every 12 hours Hydralazine when necessary Anxiety Continue Xanax - would minimize this due to his fall history DVT prophylaxis SCDs Discharge Planning Possibly be discharged home tomorrow with home health care if he ambulates well with physical therapy today and blood pressure remains controlled Problem Qualifiers (1) Falls: Qualified Codes: W19.XXXA - Unspecified fall, initial encounter Kylee Solis MD Jan 23, 2017 11:40
[2017-01-23] MEDS ORDERED: GLUCAGON 1 MG/ML VIAL OTHER PRN (12:30)
[2017-01-23] MEDS ORDERED: DEXTROSE 50% IN WATER 50 ML VIAL(D50) IV PUSH PRN (12:30)
--- NOTE | 2017-01-23 13:01 | PD.CARD.PN ---
Subjective Subjective Remarks Overall appears to be doing well Up in the chair Blood pressure better controlled Objective Medications Current Medications Medications (Trade) Dose Ordered Sig/[place] Route Start Time Stop Time Status Last Admin (NS Flush) 2 ml UNSCH PRN IV FLUSH 01/16/17 23:15 (NS Flush) 2 ml BID IV FLUSH 01/17/17 09:00 01/23/17 08:18 (Zofran Inj) 4 mg Q6H PRN IVP 01/16/17 23:15 01/22/17 21:46 (Tylenol) 650 mg Q6H PRN PO 01/16/17 23:15 01/18/17 01:57 ([place] 5-325 Mg) 1 tab Q4H PRN PO 01/16/17 23:15 01/20/17 17:41 (Morphine Inj) 1 mg Q3H PRN IV PUSH 01/16/17 23:15 (Milk Of Magnesia Liq) 30 ml Q12H PRN PO 01/16/17 23:15 (Ecotrin Ec) 81 mg DAILY PO 01/17/17 09:00 01/23/17 08:18 (Lopressor) 25 mg Q12HR PO 01/17/17 09:00 01/23/17 08:18 (Vasotec) 20 mg DAILY PO 01/18/17 10:45 01/23/17 08:17 (Protonix) 20 mg DAILY PO 01/18/17 11:00 01/23/17 08:17 (Librium) 5 mg TID PO 01/18/17 14:45 Future Hold 01/20/17 08:30 (Xanax) 0.25 mg Q12HR PO 01/18/17 14:45 01/23/17 08:17 (Neurontin) 100 mg BID PO 01/18/17 14:45 01/23/17 08:18 (Phenergan Inj) 12.5 mg Q6H PRN IM 01/18/17 16:30 (Lipitor) 40 mg HS PO 01/18/17 21:00 01/22/17 20:41 (Apresoline) 25 mg Q8HR PRN PO 01/20/17 14:30 01/22/17 12:31 (Vasotec Inj) 2.5 mg Q6H PRN IV PUSH 01/20/17 14:30 01/21/17 16:12 (Glucophage) 500 mg DAILY PO 01/22/17 09:00 01/23/17 08:18 (Norvasc) 10 mg DAILY PO 01/22/17 09:00 01/23/17 08:18 (D50w (Vial) Inj) 50 ml UNSCH PRN IV PUSH 01/23/17 12:30 (Glucagon Inj) 1 mg UNSCH PRN OTHER 01/23/17 12:30 (NovoLOG SUPPLEMENTAL SCALE) 1 ACHS SLIDING SCALE SQ 01/23/17 17:00 Vital Signs / I&O Vital Signs Date Time Temp Pulse Resp B/P (MAP) Pulse Ox O2 Delivery O2 Flow Rate FiO2 01/23/17 12:00 66 01/23/17 12:00 98.2 66 18 132/75 (94) 95 01/23/17 08:00 55 01/23/17 08:00 99.0 55 20 145/88 (107) 95 01/23/17 04:00 98.0 62 19 126/64 (84) 98 01/23/17 04:00 60 01/23/17 00:00 98.0 64 16 147/65 (92) 98 01/23/17 00:00 60 01/22/17 20:00 62 01/22/17 20:00 98.7 69 18 151/88 (109) 97 01/22/17 18:32 66 01/22/17 17:00 70 01/22/17 16:00 68 01/22/17 15:00 59 01/22/17 15:00 98.6 70 18 146/85 (105) 97 01/22/17 14:00 66 01/22/17 13:56 149/82 (104) I/O 01/22/17 01/22/17 01/22/17 01/23/17 01/23/17 01/23/17 07:00 15:00 23:00 07:00 15:00 23:00 Intake Total 240 ml 600 ml Output Total 800 ml 800 ml 250 ml Balance -560 ml -200 ml -250 ml Intake Oral 240 ml 600 ml Output Urine Total 800 ml 800 ml 250 ml # Bowel Movements 1 Physical Exam GENERAL: NAD, alert and awake SKIN: Warm and dry. HEAD: Atraumatic. Normocephalic. EYES: Pupils equal and round. No scleral icterus. No injection or drainage. ENT: No nasal bleeding or discharge. Mucous membranes pink and moist. NECK: Trachea midline. No JVD. CARDIOVASCULAR: Regular rate and rhythm. RESPIRATORY: No accessory muscle use. Clear to auscultation. Breath sounds equal bilaterally. GASTROINTESTINAL: Abdomen soft, non-tender, nondistended. Hepatic and splenic margins not palpable. MUSCULOSKELETAL: Extremities without clubbing, cyanosis, or edema. No obvious deformities. Right groin no hematoma/bruit, distal pulses intact NEUROLOGICAL: Awake and alert. No obvious cranial nerve deficits. Motor grossly within normal limits. Baseline tremor PSYCHIATRIC: Appropriate mood and affect; insight and judgment normal. Assessment and Plan Problem List: (1) HTN (hypertension) ICD Codes: I10 - Essential (primary) hypertension (2) Tremor ICD Codes: R25.1 - Tremor, unspecified (3) NSTEMI (non-ST elevated myocardial infarction) ICD Codes: I21.4 - Non-ST elevation (NSTEMI) myocardial infarction Status: Acute (4) Falls ICD Codes: W19.XXXA - Unspecified fall, initial encounter Status: Acute Assessment and Plan 1) MRI negative for CVA 2) NSTEMI MVCAD CT surgery evaluation, too high risk of CABG Overall patient appears asymptomatic, discussed with niece (POA) and patient will plan on medical management for now 3) Concern with multiple falls Although believed to be not only his gate but moving around the house Discussed with the patient and his niece (POA) about concern with placing on DAPT if PCI Turned down for SNF, but overall when seen walking his gate is very unstable , will walk with PT again, but still would agree with SNF if possible 4) Accelerated HTN Agree with increasing Norvasc to 10mg Blood pressure better controlled 5) No further cardiovascular work up, will see PRN, call with questions Problem Qualifiers (1) Falls: Qualified Codes: W19.XXXA - Unspecified fall, initial encounter Derrick Batista DO Jan 23, 2017 13:01
[2017-01-23] MEDS: ATORVASTATIN 40 MG TAB PO SCH (20:13)
[2017-01-24] VITALS: BP 131/70; PULSE 50; PULSE 54; RESP 18; TEMP 98.7; O2SAT 94
[2017-01-24 04:00] VITALS: BP 141/72; PULSE 59; RESP 18; TEMP 97.9; O2SAT 99
[2017-01-24 08:00] VITALS: BP 148/79; PULSE 64; PULSE 72; RESP 18; TEMP 96.8; O2SAT 98
[2017-01-24] MEDS: GABAPENTIN 100 MG CAP PO SCH (08:51)
[2017-01-24] MEDS: METOPROLOL TARTRATE 25 MG TAB PO SCH (08:51)
[2017-01-24] MEDS: ENALAPRIL MALEATE 10 MG TAB PO SCH (08:51)
[2017-01-24] MEDS: metFORMIN HCL 500 MG TAB PO SCH (08:51)
[2017-01-24] MEDS: ALPRAZolam 0.25 MG TAB PO SCH (08:51)
[2017-01-24] MEDS: INSULIN ASPART SUPPLEMENTAL SCALE SQ SCH ×2 (08:51→12:00)
[2017-01-24] MEDS: PANTOPRAZOLE SOD 20 MG DELAYED RELEASE TAB PO SCH (08:51)
[2017-01-24] MEDS: ASPIRIN EC 81 MG TABEC PO SCH (08:52)
[2017-01-24] MEDS: SODIUM CHLORIDE 0.9% FLUSH 10 ML FLUSH IV FLUSH SCH (08:54)
--- NOTE | 2017-01-24 11:47 | HHI.DS ---
Discharge Summary Admission Date Jan 16, 2017 at 22:59 Discharge Date: Jan 24, 2017 Admitting Diagnosis Tn 1.5; Falls; AMS (1) Multi-vessel coronary artery stenosis ICD Code: I25.10 - Atherosclerotic heart disease of [place] coronary artery without angina pectoris (2) NSTEMI (non-ST elevated myocardial infarction) ICD Code: I21.4 - Non-ST elevation (NSTEMI) myocardial infarction Status: Acute (3) Falls ICD Code: W19.XXXA - Unspecified fall, initial encounter Status: Acute (4) Ischemic dilated cardiomyopathy ICD Code: I25.5 - Ischemic cardiomyopathy; I42.0 - Dilated cardiomyopathy (5) Cerebellar atrophy ICD Code: G31.9 - Degenerative disease of nervous system, unspecified (6) Tremor ICD Code: R25.1 - Tremor, unspecified (7) HTN (hypertension) ICD Code: I10 - Essential (primary) hypertension (8) Gastritis and duodenitis ICD Code: K29.90 - Gastroduodenitis, unspecified, without bleeding Procedures Left heart catheterization EGD Brief History - From Admission Mr. Dash is 76 yo, with history of anxiety, GERD, tremors, hypertension, and diabetes. Pt stated having difficulty walking for "over the past two weeks." He stated he has been "staggering" and "I can't walk a straight line." He noted over the past three days having fallen 4 times with at least one head strike. None of these falls resulted in loss of consciousness, blurred vision, or headache. He did report a fall that was a left sided head strike did result in him developing "some nausea." He stated he became concerned about his falling and called 911 and was taken to [facility]. Testing indicated the presence of elevated troponin and he was subsequently transferred [place] [facility] [place] on the morning of 01/17/17 for further evaluation and management. Mr. Dash denied chest pain, shortness of breath, nausea, vomiting, sweating , or other discomfort. Per RN, she stated pt's niece had reported pt was "not himself". Pt noted he has been taking Ativan and RN stated it had recently "been stopped." His tox screen was positive for benzodiazepines. CBC/BMP: 01/22/17 0741 01/21/17 0532 Significant Findings Laboratory Tests Test 01/22/17 07:41 Imaging Last Impressions Brain MRI 01/17/17 0000 Signed Impressions: Service Date/Time: Tuesday, January 17, 2017 14:42 - CONCLUSION: Age-appropriate atrophy. Otherwise negative MRI brain with and without contrast. Jose Maria Colunga MD Head CT 01/16/17 2150 Signed Impressions: Service Date/Time: Monday, January 16, 2017 22:15 - CONCLUSION: Age-appropriate atrophy. No acute findings. Jose Maria Colunga MD Pelvis X-Ray 01/16/17 0000 Signed Impressions: Service Date/Time: Monday, January 16, 2017 22:15 - CONCLUSION: No fracture seen. Jose Maria Colunga MD Chest X-Ray 01/16/17 0000 Signed Impressions: Service Date/Time: Monday, January 16, 2017 22:15 - CONCLUSION: No acute disease. Jesús Davies MD PE at Discharge GENERAL: A very pleasant well-developed well-nourished male in no significant distress. SKIN: Warm and dry. HEAD: Normocephalic. EYES: No scleral icterus. No injection or drainage. NECK: Supple, trachea midline. No JVD or lymphadenopathy. CARDIOVASCULAR: Regular rate and rhythm without murmurs, gallops, or rubs. RESPIRATORY: Breath sounds equal bilaterally. No accessory muscle use. GASTROINTESTINAL: Abdomen soft, non-tender, nondistended. EXTREMITIES: No cyanosis, or edema. NEUROLOGICAL: Awake, alert, and oriented x 3. He does have tremors of the bilateral upper extremities. Hospital Course 76-year-old man who presented to the ER on 01/16 complaining of gait instability and frequent falls, was coincidently found to have non-ST elevated myocardial infarction. Cardiology was consulted and the patient underwent a left heart catheterization on 01/20/17 showing diffuse disease of the LAD with stenosis of 80-90%, 99% subtotal occlusion of the PDA, no stent was placed. 2-D echo with EF 50-55% Cardiothoracic surgery was consulted however recommended nonsurgical management after discussion with the patient's power of erisa attorney/ niece Chrissy Be. Cardiology also did not feel that he was a good candidate for PCI as the patient was currently asymptomatic and has frequent falls. Patient is being medically managed with metoprolol, aspirin, and Lipitor. The patient had also complained of some hematemesis and underwent EGD with findings of duodenitis and gastritis. He is to continue on a PPI. The patient does have chronic unsteady gait and is followed by Dr. Hooper/ neurology as an outpatient patient has cerebellar atrophy and possible Parkinson 's disease. Gait has improved at this time with physical therapy. Patient was evaluated for retirement facility however [employer] declined him. Home health care has been arranged for the patient. Patient's niece is very active in his health care and he has a nephew who lives several blocks away. Patient's blood pressure was elevated and he was started on Norvasc with improvement of blood pressure. Discharge home today with home health care. Pt Condition on Discharge: Fair Discharge Disposition: Disch w/ Home Health Serv Discharge Time: > 30 minutes Discharge Instructions DIET: Follow Instructions for: Heart Healthy Diet Activities you can perform: Regular-No Restrictions Follow up Referrals: Cardiology - 2 Weeks PCP Follow-up - 2-3 Days New Medications: Alprazolam (Xanax) 0.25 Mg Tab 0.25 MG PO Q12HR for Control Anxiety, #20 TAB Amlodipine (Norvasc) 10 Mg Tab 10 MG PO DAILY for Blood Pressure Management, #30 TAB [address] (Aspirin DR) 81 Mg Tabdr 81 MG PO DAILY for Prevent Blood Clot, #30 TAB 11 Refills Atorvastatin (Atorvastatin) 40 Mg Tab 40 MG PO HS for Cholesterol Management, #30 TAB 11 Refills Hydrocodone/Acetaminophen (Hydrocodone-Acetamin 5-325 mg) 5 Mg-325 Mg Tablet 1 TAB PO Q4H PRN for PAIN SCALE 3 TO 5, #10 TAB Metformin (Glucophage) 500 Mg Tab 500 MG PO DAILY for Blood Sugar Management, #30 TAB 3 Refills Metoprolol Tartrate (Metoprolol Tartrate) 25 Mg Tab 25 MG PO Q12HR for Blood Pressure Management, #30 TAB 11 Refills Continued Medications: Enalapril (Enalapril) 20 Mg Tab 20 MG PO DAILY, #30 TAB 0 Refills Gabapentin (Gabapentin) 100 Mg Cap 100 MG PO BID, #60 CAP 0 Refills Omeprazole (Omeprazole) 20 Mg Tab 20 MG PO DAILY, #30 TAB 0 Refills Discontinued Medications: Alprazolam (Alprazolam) 0.25 Mg Tab 0.25 MG PO Q12HR for Anxiety, TAB 0 Refills Kylee Solis MD Jan 24, 2017 11:47
[2017-01-24 12:00] VITALS: BP 130/72; PULSE 64; RESP 18; TEMP 98.9; O2SAT 96
[2017-01-24] MEDS ORDERED: ZOFR4TAB3 SL (14:33)
[2017-01-24] MEDS ORDERED: WALKER WHEELS/F1 MIS (16:24)
== END 2017-01-24 16:38 | disposition home health service (06) | DRG 281 ==
LOC: PHED 21:30 → PHEDA 22:59 → HCIN 01-17 01:52 → HCIS 01-19 15:12
PROVIDERS: ADMIT Hospitalist; ATTEND Family Medicine
PROC: 0DB98ZX Excision of Duodenum, Via Natural or Artificial Opening Endoscopic, Diagnostic (ICD-10-PCS; 2017-01-19)
PROC: 0DB68ZX Excision of Stomach, Via Natural or Artificial Opening Endoscopic, Diagnostic (ICD-10-PCS; 2017-01-19)
PROC: 0DB58ZX Excision of Esophagus, Via Natural or Artificial Opening Endoscopic, Diagnostic (ICD-10-PCS; 2017-01-19)
PROC: B2111ZZ Fluoroscopy of Multiple Coronary Arteries using Low Osmolar Contrast (ICD-10-PCS; 2017-01-20)
PROC: 4A023N7 Measurement of Cardiac Sampling and Pressure, Left Heart, Percutaneous Approach (ICD-10-PCS; principal; 2017-01-20 09:45)
DX: I21.4 Non-ST elevation (NSTEMI) myocardial infarction (principal); K92.0 Hematemesis; I42.0 Dilated cardiomyopathy; K22.2 Esophageal obstruction; E11.9 Type 2 diabetes mellitus without complications; I10 Essential (primary) hypertension; I25.10 Atherosclerotic heart disease of native coronary artery without angina pectoris; R26.81 Unsteadiness on feet; K44.9 Diaphragmatic hernia without obstruction or gangrene; K29.70 Gastritis, unspecified, without bleeding; K29.80 Duodenitis without bleeding; R29.6 Repeated falls; K21.9 Gastro-esophageal reflux disease without esophagitis; R25.1 Tremor, unspecified; F41.9 Anxiety disorder, unspecified; I34.0 Nonrheumatic mitral (valve) insufficiency; G31.9 Degenerative disease of nervous system, unspecified; I25.5 Ischemic cardiomyopathy; R42 Dizziness and giddiness; Z79.4 Long term (current) use of insulin; Z23 Encounter for immunization
CPT/HCPCS: 70450; 70553; 71010; 72170; 80048; 80053; 80076; 80307; 81001; 82272; 82550; 82552; 82607; 82948; 83036; 83735; 84484; 85025; 85027; 85610; 85730; 88305; 88312; 90732; 93005; 93306; 93458; 99152; 99153; 99291; A9579; C1760; C1769; C1893; G0269; J0360; J1644; J1815; J2250; J2405; J2550; J3010; J7030; Q9967